=== PATIENT | male | born 1965 | race Caucasian/White ===

== ENCOUNTER 2021-09-21 10:28 | Outpatient (CLI) | payer OTHER, SELFPAY ==
--- NOTE | ~2021-09-21 | US_ITS ---
US abdomen complete DATE: 09/21/2021 11:41 INDICATION: Abdominal aortic aneurysm TECHNIQUE: Real-time imaging of the abdomen. Doppler analysis. COMPARISON: None FINDINGS: The pancreatic tail is partially obscured the pancreas otherwise appears normal. No pancrea tic duct dilatation. No hepatic space-occupying mass lesion is detected. Normal hepatopedal portal venous flow direction. No gallstones or gallbladder wall thickening. Negative sonographic Philippe's sign. The common bile sandy t measures 2.8 mm, normal. The kidneys each measure roughly 10 cm length. No renal mass lesion or hydronephrosis. Approximate 1.2 cm probable exophytic left renal cyst. Normal splenic size. Approximately 3.8 cm fusiform infrarenal abdominal aortic aneurysm. Inferior vena cava appears unrema rkable. IMPRESSION: Approximately 3.8 cm infrarenal fusiform abdominal aortic aneurysm 1.2 cm exophytic left renal cyst Reviewed, dictated and finalized at [facility]. Reviewed, dictated and finalized at location B.
== END 2021-09-21 10:29 | disposition home or self-care (01) ==
PROVIDERS: PCP Family Medicine; Visit Provider Internal Medicine Cardiovascular Disease
DX: I71.4 Abdominal aortic aneurysm, without rupture (principal); N28.1 Cyst of kidney, acquired
CPT/HCPCS: 76700

== ENCOUNTER 2023-02-18 10:23 | Inpatient (IN) | payer OTHER, SELFPAY ==
--- NOTE | ~2023-02-18 | US_ITS ---
. EXAMINATION: US biopsy liver DATE: 02/19/2023 14:54 INDICATION: Liver mass. TECHNIQUE: The procedure including the risks, benefits, and alternatives was discussed with the patie nt. Risks discussed included bleeding and infection. The patient understood the risks and agreed to p roceed. The skin overlying the left hepatic lobe was prepped and draped in usual sterile fashion. An esthetic was administered with 1% lidocaine subcutaneously. An 18 gauge core biopsy needle was then used to obtain 3 core biopsy specimens under continuous sonographic guidance. The entry site was joce jamil and dressed. There were no immediate complications. FINDINGS: Ultrasound images demonstrate the needle in a 3.5 cm hypoechoic mass in left hepatic lobe. IMPRESSION: 1. Ultrasound-guided core needle biopsy of a mass in left hepatic lobe. Reviewed, dictated and finalized at location A. RER PIPELINE
--- NOTE | ~2023-02-18 | CT_ITS ---
EXAMINATION: CTA chest abdomen pelvis DATE: 02/18/2023 12:33 INDICATION: Chest and epigastric abdominal pain. TECHNIQUE: Computed tomographic angiography (CTA) of the chest, abdomen, and pelvis was performed wit h 100 mL Omnipaque-350 intravenous contrast. Automated exposure control and iterative reconstruction technique were employed. The dose-length product was 1191.63 mGy-cm. Maximum intensity projection 3D- reconstructions of the aorta and other arteries were constructed by the technologist on a separate wo rkstation. COMPARISON: None. FINDINGS: CHEST CTA: There is mild atelectasis bilaterally. There are airspace opacities in right upper lobe with volume l oss and areas of parenchymal hypoenhancement. There is a small right pleural effusion. The heart size is normal. There are coronary artery calcifications. No pericardial effusion. Aortic atherosclerosis is noted. No aortic dissection or aneurysm. There is mediastinal and right hilar lymphadenopathy. Th ere are innumerable scattered lytic lesions of bone, consistent with metastatic disease. ABDOMEN AND PELVIS CTA: There are greater than 40 masses in the liver measuring up to 3.2 cm. There is fat stranding around t he tail the pancreas, consistent with acute interstitial pancreatitis. The gallbladder, spleen, and r ight adrenal gland are normal. There is a 4 mm mass of fat in left adrenal gland, consistent with a m yelolipoma. There is cortical thinning of the kidneys. There is a 15 mm cyst in left kidney. There is a 4.0 cm fusiform infrarenal aortic aneurysm. The prostate is mildly enlarged. The appendix is marty l. There are no dilated loops of bowel. There is mild periceliac lymphadenopathy. There is calcified atherosclerosis of the aorta and many of the other arteries. There is no significant stenosis of gretta ac axis, superior mesenteric artery, the renal arteries, or inferior mesenteric artery. There is no f ree intraperitoneal fluid. There are numerable scattered lytic lesions of bone, consistent metastatic disease. IMPRESSION: 1. Liver masses, chest and abdominal lymphadenopathy, and widespread bone lesions, consistent with me tastatic disease. Ultrasound-guided core needle biopsy of a liver mass is recommended. 2. Small right pleural effusion. 3. Airspace opacities with volume loss in right lung upper lobe, which may be atelectasis, pneumonia, and/or malignancy. 4. Acute interstitial pancreatitis. Reviewed, dictated and finalized at location A. TRICAL MACHINIST IMPRESSION: 1. Liver masses, chest and abdominal lymphadenopathy, and widespread bone lesio ns, consistent with metastatic disease. Ultrasound-guided core needle biopsy of a liver mass is recommended. 2. Small right pleural effusion. 3. Airspace opacities with volume loss in right lung upper lobe, which may be a telectasis, pneumonia, and/or malignancy. 4. Acute interstitial pancreatitis.
--- NOTE | ~2023-02-18 | XR_ITS ---
EXAMINATION: XR abdomen obstructive series DATE: 02/24/2023 10:32 INDICATION: Constipation TECHNIQUE: Supine and upright views of the abdomen. FINDINGS: 02/23/2023 The visualized lung parenchyma is normal.. There is a nonobstructive bowel gas pattern. Moderate gas throughout the colon. There are surgical changes consistent with fusion at L4 S1. Gas and stool are s een throughout the colon to the level of the rectum. There is no free air. IMPRESSION: 1. Moderate gas throughout the colon, nonspecific. No obstruction.. Reviewed, dictated and finalized at location A. ING DYER
--- NOTE | ~2023-02-18 | MR_ITS ---
EXAMINATION: MR MRCP wo/w con/w 3D wo ind DATE: 02/22/2023 07:15 INDICATION: Acute pancreatitis. TECHNIQUE: Magnetic resonance imaging (MRI) of the abdomen was performed without and with 17 mL Multi Noah intravenous contrast. Sequences included coronal T2-weighted FS FSE, coronal T2-weighted FSE, a xial T1-weighted LAVA, coronal FS FIESTA, axial dual-echo T1-weighted SPGR, coronal lava-FLEX, sagitt al T2-weighted FSE, axial T2-weighted FSE, and axial DWI. Thick-slab T2-weighted FSE images were obta ined for magnetic resonance cholangiopancreatography (MRCP). Maximum intensity projection 3-D reconst ructions of the volumetric data were created by the technologist. Postcontrast sequences included cor onal LAVA-flex and time course of axial T1-weighted LAVA. COMPARISON: CT abdomen and pelvis 02/18/2023 FINDINGS: ABDOMEN MRI: There are small pleural effusions, right worse than left. The heart size is normal. No p ericardial effusion. There are innumerable masses in the liver measuring up to 3.6 cm, consistent wit h metastatic disease. There is a small hematoma superficial to the left hepatic lobe from the recent liver biopsy. The gallbladder and spleen are normal. There is edema around the pancreas, consistent w ith acute interstitial pancreatitis. There are 2 hypoenhancing masses in the pancreas measuring up to 7 mm, likely metastatic disease. The adrenal glands are normal. There are cysts in the kidneys measu ring up to 1.4 cm on the left. There are no dilated loops of bowel. There is a 3.7 cm fusiform aneury sm of infrarenal aorta. There is trace ascites. There is mild periceliac lymphadenopathy. There are c hanges of posterior fusion procedure from L4 to S1 with pedicle screws. There are widespread bone les ions, consistent metastatic disease. ABDOMEN MRCP: The common duct is normal and measures 5 mm. No choledocholithiasis. IMPRESSION: 1. Mild findings of acute interstitial pancreatitis. 2. Widespread metastatic disease including liver masses, pancreatic masses, abdominal lymphadenopathy , and bone lesions. 3. Small pleural effusions. Reviewed, dictated and finalized at location A. MANAGER IMPRESSION: 1. Mild findings of acute interstitial pancreatitis. 2. Widespread metastatic disease including liver masses, pancreatic masses, abd ominal lymphadenopathy, and bone lesions. 3. Small pleural effusions.
--- NOTE | ~2023-02-18 | XR_ITS ---
XR abdomen/kub 1V 02/23/2023 14:30 Indication: Abdominal distention Procedure: KUB Comparison: No prior studies for comparison. Findings: Nonobstructive bowel gas pattern. There is surgical fusion changes at L4-S1. The right S1 p edicle screw is fractured. No acute osseous abnormality. Impression: 1: No acute abdominal abnormality. Reviewed, dictated and finalized at location A. RITY SUPERVISOR Impression: 1: No acute abdominal abnormality.
[2023-02-18 10:24] VITALS: BP 172/108; PULSE 100; RESP 18; TEMP 36.2; O2SAT 100
[2023-02-18 10:43] LABS: Basophils Percent Auto 0.3 % (0.2-1.2); Eosinophils Absolute Auto 0.1 K/mm3 (0-0.3); Eosinophils Percent Auto 0.6 % (0-4.4); Hematocrit 41.5 % (42.0-52.0); Hemoglobin 13.4 g/dL (14.0-18.0); Immature Granulocyte Absolute 1.09 K/mm3 (0.00-0.031); Immature Platelet Fraction Pct 6.1 % (0.9-11.2); Lymphocytes Percent Auto 25.3 % (18.3-44.2); Mean Corpuscular HGB Conc 32.3 g/dl (32-36); Mean Corpuscular Hemoglobin 29.3 pg (26-34); Mean Corpuscular Volume 90.6 fl (80-100); Mean Platelet Volume 10.2 fl (7.4-10.4); Monocytes Percent Auto 10.1 % (2.6-8.5); Neutrophils Absolute Auto 5.2 K/mm3 (1.3-6.7); Neutrophils Percent Auto 52.7 % (45.5-73.1); Nucleated Red Blood Cells Absolute Auto 0.1 K/mm3 (0.0-0.012); Nucleated Red Blood Cells Perc 0.8 % (0.0-0.2); Platelet Count Result 78 k/mm3 (150-375); Red Blood Count 4.58 M/mm3 (4.6-6.20); Red Cell Distribution Width 13.2 % (11.5-14.5); White Blood Count 9.9 K/mm3 (4.5-10.0)
[2023-02-18 10:58] LABS: Alanine Aminotransferase 107 U/L (6-50); Alkaline Phosphatase 555 U/L (38-126); Anion Gap 11 mmol/L (8-16); Aspartate Amino Transferase 135 U/L (17-59); Bilirubin,Total 0.5 mg/dL (0.2-1.3); Blood Urea Nitrogen 17 mg/dL (9-20); Carbon Dioxide 25 mmol/L (22-30); Chloride 101 mmol/L (98-107); Estimated CRCL calculation 87 ml/min; Estimated Glomerular Filt Rate > 60; Glucose 91 mg/dL (65-110); Lipase 2387 U/L (23-300); Potassium 3.3 mmol/L (3.4-5.0); Sodium 137 mmol/L (137-145)
[2023-02-18 11:19] LABS: Platelet Estimate Adequate (Adequate); Poikilocytosis 1+ (NORMAL)
[2023-02-18 11:20] LABS: Schistocytes None Seen (NORMAL)
--- NOTE | 2023-02-18 11:48 | ED.GENADULT ---
HPI - General Adult General Chief complaint: Abdominal Pain <Abelardo Coronel PA-C - Last Filed: 02/18/23 18:19> Stated complaint: abd pain <Abelardo Coronel PA-C - Last Filed: 02/18/23 18:19> Time Seen by Provider: 02/18/23 11:08 <Abelardo Coronel PA-C - Last Filed: 02/18/23 18:19> Source: patient <LAURIE Hill Last Filed: 02/18/23 18:19> Mode of arrival: ambulatory <LAURIE Hill Last Filed: 02/18/23 18:19> Limitations: no limitations <Abelardo Coronel PA-C - Last Filed: 02/18/23 18:19> History of Present Illness HPI narrative: This is a 57 year old male with PMH of CAD s/p stent placement, chronic low back pain who presents to the ED with chief complaint of upper abdominal pain for the past 2 weeks and worsening today. Reports that it radiates to the back. Reports 8/10 pain. States it is a pressure-like pain. Denies nausea or vomiting. Denies syncope. States he has mid to low back pain as well but is unsure if this is just his chronic low back pain. Denies numbness, weakness, problems with urination. Also states that he has been told he has a abdominal aortic aneurysm. States that initially it was found to be around [address] scan in 2019. He states his last ultrasound check was 2 years ago and reports that it had grown to somewhere in the 4 cm range. He has not had any subsequent scans. <Abelardo Coronel PA-C - Last Filed: 02/18/23 18:19> Related Data Home medications: Home Medications Medication Instructions Recorded Confirmed carvedilol 25 mg tablet 25 mg PO BID 02/18/23 02/18/23 ezetimibe 10 mg tablet 10 mg PO DAILY 02/18/23 02/18/23 lisinopril 20 mg tablet 20 mg PO DAILY 02/18/23 02/18/23 rosuvastatin 40 mg tablet 20 mg PO DAILY 02/18/23 02/18/23 <LAURIE Hill Last Filed: 02/18/23 18:19> Allergies/adverse reactions: Allergies Allergy/AdvReac Type Severity Reaction Status Date / Time No Known Allergies Allergy Mild Verified 02/18/23 12:05 <Abelardo Coronel PA-C - Last Filed: 02/18/23 18:19> Review of Systems Review of Systems: All systems as dictated in HPI <Abelardo Coronel PA-C - Last Filed: 02/18/23 18:19> [facility] Past Medical History Medical History: Medical History (Updated 02/18/23 @ 17:26 by Karen Cortes PA-C) Abdominal aortic aneurysm Per patient report last measuring around 4 cm. Coronary artery disease Dyslipidemia Hypertension Ischemic cardiomyopathy EF was 35 to 40% at time of non STEMI in 06/2010 EF was 50% on cardiac catheterization in 12/2015. Non-ST elevation myocardial infarction (NSTEMI) (06/2010) <Abelardo Coronel PA-C - Last Filed: 02/18/23 18:19> Surgical History Surgical History: Surgical History (Updated 02/18/23 @ 16:53 by Karen Cortes PA-C) History of cardiac catheterization (12/2015) Patent stents, 40 to 50% stenosis of the RCA and mid LAD with an EF of 50%. History of coronary artery stent placement (06/2010) Stents to the mid right coronary artery and proximal PLV. History of spinal fusion <Abelardo Coronel PA-C - Last Filed: 02/18/23 18:19> Family History Family History: Family History Grandparent Hypertension Diabetes mellitus Mother Cerebrovascular accident Heart disease Father Family history of heart disease in male family member before age 55 Heart disease <Abelardo Coronel PA-C - Last Filed: 02/18/23 18:19> Social History Social History: Social History (Updated 02/18/23 @ 22:17 by Karen Cortes PA-C) Social History: Surrogate medical decision maker: Ayesha Grace, spouse. Code status: Full code. Smoking packs per day: 0.5 Smoking cigarettes per day: 10.0 Years smoked: 40 Smoking pack-years: 20.00 Smoking status: Current every day smoker Alcohol intake: never Substance use: never Substance use type: does not use Lack of Transportation: No [place]
--- NOTE | 2023-02-18 11:49 | ECG_ITS ---
Measurements Intervals [place] Rate: 91 P: 29 ND: 162 QRS: 19 QRSD: 110 T: 48 QT: 359 QTc: 444 Interpretive Statements SINUS RHYTHM INCOMPLETE RIGHT BUNDLE BRANCH BLOCK BASELINE ARTIFACT- I, II, III, AVR, AVL, AVF BORDERLINE ECG NO PREVIOUS ECG AVAILABLE FOR COMPARISON Electronically Signed On 02-18-2023 12:08:35 [employer] PRODUCT DEVELOPMENT MANAGER by Jose Herrera D.O.
[2023-02-18] MEDS: SODIUM CHLORIDE 0.9% IV 1,000 ML 999 ML IV CONT (11:50)
[2023-02-18] MEDS: ONDANSETRON INJ 4 MG/2 ML VIAL IV PUSH (11:50)
[2023-02-18] MEDS: MORPHINE SULFATE (*CRX) 4 MG/ML INJ IV PUSH ×2 (11:50→15:26)
[2023-02-18 12:10] LABS: Appearance Urine Cloudy (Clear); Bacteria Urine None Seen /hpf; Bilirubin Urine Negative (Negative); Blood Urine Negative (Negative); Color Urine Yellow (Yellow); Glucose Urine UA Negative (Negative); Ketones Urine Negative (Negative); Leukocyte Esterase Ur Negative LEU/UL (Negative); Nitrate Urine Negative (Negative); Non Pathogenic Casts 0-2; Protein Urine Trace mg/dL (Negative); RBC Urine 0-2 /hpf (0-2); Specific Grav Ur 1.021 (1.001-1.035); Squamous Epithelial Cell Urine None seen /hpf (Few); WBC Urine 0-5 /hpf
[2023-02-18 12:16] LABS: Add Urine Microscopic? YES
[2023-02-18 12:32] LABS: Troponin I < 0.012 ng/mL (0.000-0.034)
[2023-02-18 12:52] VITALS: BP 155/93; PULSE 75; RESP 18; O2SAT 96
[2023-02-18 13:36] LABS: Lactate Dehydrogenase 2063 U/L (120-246)
[2023-02-18] MEDS: SODIUM CHLORIDE 0.9% IV 1,000 ML 125 ML IV CONT (13:52)
[2023-02-18 13:53] LABS: Triglycerides 191 mg/dL (<150)
--- NOTE | 2023-02-18 14:49 | ADMGEN ---
This patient, Jayy Grace, was admitted to [facility] Surg Room 303-01. Patient/family oriented to hospital policies and general routines including ID bracelet, bed and alarms, visiting hours, pain management, procedures, bathroom and other care routines, personal items, smoking policy, room service/diet, and visiting hours. Information on how to activate the Rapid Response Team has been discussed. Patient/Family are encouraged to report perceived risks to care and to ask questions if they do not understand what they are told or what they should do.
--- NOTE | 2023-02-18 14:52 | PC.NURSE ---
being admitted with IVF infusing
[2023-02-18 15:08] VITALS: BP 149/91; PULSE 100; RESP 16; TEMP 37; O2SAT 96
[2023-02-18 15:44] VITALS: O2SAT 96
--- NOTE | 2023-02-18 16:34 | PM.IMHP ---
H&P: HPI History of Present Illness Date/Time: 02/18/23 16:30 Chief Complaint: Abdominal pain. Narrative: This is a pleasant 57-year-old male smoker with coronary artery disease with history of stents, ischemic cardiomyopathy with improved EF, hypertension, dyslipidemia, abdominal aortic aneurysm measuring around 4 cm on imaging 2 years ago, and chronic low back pain who presented to the emergency department via private vehicle from home for evaluation of abdominal pain. The patient provides the following history. He reports a gradual onset of pressure-like discomfort throughout the upper abdomen which radiates into the back on occasion. The pain can be intense and at its worse he rates it 8/10. It is worse with deep inspiration ?it feels like the air pushes down on the diaphragm? and palpation. He feels bloating and has been belching and passing gas although that does not seem to help with his symptoms. He has not noticed any significant alleviating factors. This pain is different than that he experiences with his chronic mid to low back pain. He thinks he is constipated and reports not having a good bowel movement for over 1 week which is very unusual for him. With further questioning he also endorses a poor appetite, 15 lb unintentional weight loss in the last 1 month, chest congestion with nonproductive cough, chills, sweats, subjective fever, right rib pain, and right scapula pain. He denies chest pain, shortness of breath, vomiting, urinary retention, focal weakness, headache, sore throat, sick contacts, and recent travel. In the ED: He was afebrile on arrival. Blood pressures have been a bit elevated in the 140s to 150 systolic. Labs were significant for a WBC count of 9.9, hemoglobin 13.4, platelets 78, potassium 3.3, calcium 11.0, total bilirubin 0.5, AST 135, ALT 107, alkaline phosphatase 555, lactate dehydrogenase 2063, triglyceride 191, lipase 2387, troponin less than 0.012. Urinalysis was pretty benign. CT of the chest, abdomen, and pelvis showed liver masses, chest and abdominal lymphadenopathy, and widespread bone lesions consistent with metastatic disease, small right pleural effusion airspace opacities with volume loss on the right lung upper lobe, and acute interstitial pancreatitis. He is being admitted in this setting for further treatment and evaluation. He denies personal and family history of pancreatitis and malignancy. Denies risk factors for pancreatitis. He has never had a colonoscopy. PSA has never been elevated. He has not noticed any new skin lesions or atypical looking moles. Review of Systems Review of Systems: Twelve systems were reviewed and are negative except for as per HPI. [facility] Past Medical History Medical History (Updated 02/18/23 @ 17:26 by Karen Cortes PA-C) Abdominal aortic aneurysm Per patient report last measuring around 4 cm. Coronary artery disease Dyslipidemia Hypertension Ischemic cardiomyopathy EF was 35 to 40% at time of non STEMI in 06/2010 EF was 50% on cardiac catheterization in 12/2015. Non-ST elevation myocardial infarction (NSTEMI) (06/2010) Surgical History Surgical History (Updated 02/18/23 @ 16:53 by Karen Cortes PA-C) History of cardiac catheterization (12/2015) Patent stents, 40 to 50% stenosis of the RCA and mid LAD with an EF of 50%. History of coronary artery stent placement (06/2010) Stents to the mid right coronary artery and proximal PLV. History of spinal fusion Family History Family History Grandparent Hypertension Diabetes mellitus Mother Cerebrovascular accident Heart disease Father Family history of heart disease in male family member before age 55 Heart disease Social History Social History (Updated 02/18/23 @ 22:17 by Karen Cortes PA-C) Social History: Surrogate medical decision maker: Ayesha Grace, spouse. Code status: Full code. Smoking packs per day: 0.5 Sm
[2023-02-18] MEDS: KCL 20 MEQ/SW 100 ML 100 ML 50 MEQ IVPB (17:34)
[2023-02-18 20:33] VITALS: BP 155/90; PULSE 101; RESP 16; TEMP 36.4; O2SAT 96
[2023-02-18] MEDS: SODIUM CHLORIDE 0.9% IV 1,000 ML 150 ML IV CONT (20:55)
[2023-02-18] MEDS: HYDROcodone/acetaminophen (*CRX) 5-325 MG TABLET 1 TAB PO (20:57)
[2023-02-18] MEDS: AZITHROMYCIN 500 MG/NS 250 ML 500 MG/250 ML BAG 250 MG IVPB (23:55)
[2023-02-19] MEDS: HYDROcodone/acetaminophen (*CRX) 5-325 MG TABLET 1 TAB PO ×2 (02:38→20:43)
[2023-02-19] MEDS: SODIUM CHLORIDE 0.9% IV 1,000 ML 150 ML IV CONT ×3 (04:46→20:46)
[2023-02-19 05:07] VITALS: BP 158/89; PULSE 89; RESP 16; TEMP 36.6; O2SAT 96
[2023-02-19 06:44] LABS: Hematocrit 37.5 % (42.0-52.0); Hemoglobin 12.2 g/dL (14.0-18.0); Immature Platelet Fraction Pct 5.9 % (0.9-11.2); Mean Corpuscular HGB Conc 32.5 g/dl (32-36); Mean Corpuscular Hemoglobin 29.9 pg (26-34); Mean Corpuscular Volume 91.9 fl (80-100); Mean Platelet Volume 10.6 fl (7.4-10.4); Platelet Count Result 68 k/mm3 (150-375); Red Blood Count 4.08 M/mm3 (4.6-6.20); Red Cell Distribution Width 13.3 % (11.5-14.5); White Blood Count 8.7 K/mm3 (4.5-10.0)
[2023-02-19 07:15] LABS: Alanine Aminotransferase 83 U/L (6-50); Albumin Level 3.4 g/dL (3.5-5.1); Alkaline Phosphatase 462 U/L (38-126); Anion Gap 8 mmol/L (8-16); Aspartate Amino Transferase 128 U/L (17-59); Bilirubin,Total 0.6 mg/dL (0.2-1.3); Blood Urea Nitrogen 10 mg/dL (9-20); Carbon Dioxide 27 mmol/L (22-30); Chloride 101 mmol/L (98-107); Estimated CRCL calculation 109 ml/min; Estimated Glomerular Filt Rate > 60; Glucose 80 mg/dL (65-110); Lipase 1557 U/L (23-300); Potassium 3.6 mmol/L (3.4-5.0); Sodium 136 mmol/L (137-145)
[2023-02-19] MEDS: MORPHINE SULFATE (*CRX) 4 MG/ML INJ IV PUSH ×4 (10:03→21:52)
[2023-02-19 10:59] LABS: INR 1.2; Prothrombin Time 15.3 Seconds (11.1-14.7)
[2023-02-19 11:01] VITALS: BMI 30.2
[2023-02-19 11:01] LABS: Partial Thromboplastin Time 37.3 SECONDS (22.3-36.8)
[2023-02-19 14:20] VITALS: BP 163/95; PULSE 100; RESP 18; TEMP 37; O2SAT 99
--- NOTE | 2023-02-19 15:25 | PM.IMPN ---
Progress Note: A&P Assessment and Plan (1) Acute pancreatitis: Code(s): K85.90 - Acute pancreatitis without necrosis or infection, unspecified Status: Acute Assessment and Plan: CT scan showed fat stranding was noted around the tail the pancreas consistent with acute interstitial pancreatitis IVF, advance to clears pain control monitor labs, lipase down from admission to 1557 (2) Liver masses: Code(s): R16.0 - Hepatomegaly, not elsewhere classified Status: Acute Assessment and Plan: CT scan showed multiple findings including greater than 40 masses in the liver measuring up to 3.2 cm, chest and abdominal lymphadenopathy, and widespread bone lesions consistent with metastatic disease. US liver biopsy done today, pathology pending oncology consulted (3) Bone lesion: Code(s): M89.9 - Disorder of bone, unspecified Status: Acute Assessment and Plan: CT scan showed multiple findings including greater than 40 masses in the liver measuring up to 3.2 cm, chest and abdominal lymphadenopathy, and widespread bone lesions consistent with metastatic disease. oncology consulted (4) Elevated LFTs: Code(s): R79.89 - Other specified abnormal findings of blood chemistry Status: Acute Assessment and Plan: LFTs are elevated, likely due to the innumerable liver masses. continue to monitor (5) Thrombocytopenia: Code(s): D69.6 - Thrombocytopenia, unspecified Status: Acute Assessment and Plan: platelet count is 68 which may very well be due to underlying malignancy with bone involvement continue to monitor oncology consulted SCDs ordered only for now (6) Hypertension: Code(s): I10 - Essential (primary) hypertension Status: Chronic Assessment and Plan: resume home meds when taking in PO PRN hydralazine ordered (7) Coronary artery disease: Code(s): I25.10 - Atherosclerotic heart disease of [place] coronary artery without angina pectoris Status: Chronic Assessment and Plan: continue home meds when taking PO (8) Pneumonia: Code(s): J18.9 - Pneumonia, unspecified organism Status: Acute Assessment and Plan: CT scan showed airspace opacities with volume loss was noted in the right upper lobe which may be atelectasis, pneumonia, and or malignancy. will continue Rocephin and azithromycin for coverage Subjective Date/time seen: 02/19/23 15:25 Interval history: Patient is a 57 YO male smoker with PMH of coronary artery disease with history of stents, ischemic cardiomyopathy with improved EF, hypertension, dyslipidemia, abdominal aortic aneurysm measuring around 4 cm on imaging 2 years ago, and chronic low back pain admitted from ER for evaluation of abdominal pain. He reports a gradual onset of pressure-like discomfort throughout the upper abdomen which radiates into the back on occasion. This has been going on for over a week. The pain can be intense and at its worse he rates it 8/10. It is worse with deep inspiration. He feels bloating and has been belching and passing gas although that does not seem to help with his symptoms. He thinks he is constipated and reports not having a good bowel movement for over 1 week which is very unusual for him. With further questioning he also endorses a poor appetite, 15 lb unintentional weight loss in the last 1 month, chest congestion with nonproductive cough, chills, sweats, subjective fever, right rib pain, and right scapula pain. He denies chest pain, shortness of breath, vomiting, urinary retention, focal weakness, headache, sore throat, sick contacts, and recent travel. He is being treated for acute pancreatitis with IVF, pain control. Lipase has improved to 1557 from admission, will continue to monitor. US liver biopsy done today, can advance to clear liquids for dinner and see how he does. Pathology sent and oncology consulted. Will continue R
[2023-02-19] MEDS: hydrALAZINE HCL 20 MG/ML VIAL 10 MG IV PUSH (17:30)
[2023-02-19 17:45] VITALS: BP 160/70
--- NOTE | 2023-02-19 17:59 | PDONCCN ---
[facility] - Date of Consult Date/Time: 02/19/23 17:59 Requesting Physician: Bernardino Gaines MD Primary Care Provider: Aydin Olmstead MD - Consult Narrative Reason for consult: Liver masses Narrative: Jayy Grace is a 57 year old male with history of coronary artery disease, schema cardiomyopathy, hypertension and hyperlipidemia came into the hospital with complain of abdominal pain with radiation to the back along with constipation. He has a history of smoking. He denies any previous history of malignancy.CT of the chest, abdomen, and pelvis showed liver masses, chest and abdominal lymphadenopathy, and widespread bone lesions consistent with metastatic disease, small right pleural effusion airspace opacities with volume loss on the right lung upper lobe, and acute interstitial pancreatitis. Review of Systems - Review of Systems All systems reviewed & are unremarkable except as noted in [facility] and [facility] Medical History: Medical History (Last Updated 02/19/23 @ 15:33 by Angelica Horne APRN) Abdominal aortic aneurysm Per patient report last measuring around 4 cm. Coronary artery disease Dyslipidemia Hypertension Ischemic cardiomyopathy EF was 35 to 40% at time of non STEMI in 06/2010 EF was 50% on cardiac catheterization in 12/2015. Non-ST elevation myocardial infarction (NSTEMI) Onset Date: 06/2010 Surgical History: Surgical History (Last Updated 02/18/23 @ 16:53 by Karen Cortes PA-C) History of cardiac catheterization Onset Date: 12/2015 Patent stents, 40 to 50% stenosis of the RCA and mid LAD with an EF of 50%. History of coronary artery stent placement Onset Date: 06/2010 Stents to the mid right coronary artery and proximal PLV. History of spinal fusion Family History: Family History (Last Reviewed 02/18/23 @ 16:54 by Karen Cortes PA-C) Grandparent Hypertension Diabetes mellitus Mother Cerebrovascular accident Heart disease Father Family history of heart disease in male family member before age 55 Heart disease - Social History Social History: Social History (Last Updated 02/18/23 @ 22:17 by Karen Cortes PA-C) Alcohol Use: Alcohol intake: never Substance Use: Substance use: never Substance use type: does not use Others: Spiritual care concerns: No Smoking Status: Smoking status: Current every day smoker Smoking Pack-years: Smoking packs per day: 0.5 Smoking cigarettes per day: 10.0 Years smoked: 40 Smoking pack-years: 20.00 Social Determinants of Health: Has the Lack of Transportation Kept You From Medical Appointments or From Getting Medications?: No Within the Past 12 Months, Were You Worried Whether Your Food Would Run Out Before You Got Money to Buy More?: Never True What is Your Housing Situation Today?: Decline to Answer Are You Worried That in the Next 2 Months, You May Not Have Your Own Housing to Live In?: No Do You Have Trouble Paying Your Heating Or Electricity Bill?: No Do You Have Trouble Paying For Medicines?: No Are You Currently Unemployed and Looking for Work?: No Highest Level of Education Completed: Associate Degree Do You Have Trouble With Childcare or the Care of a Family Member?: No Exam - Vital Signs Vital Signs - 24 hr 02/18/23 20:33 02/18/23 20:00 02/19/23 05:07 Temperature 36.4 C 36.6 C Pulse Rate 101 H 89 Respiratory Rate 16 16 Blood Pressure 155/90 H 158/89 H Pulse Oximetry 96 96 Oxygen Delivery Room Air 02/19/23 08:00 02/19/23 14:20 Temperature 37.0 C Pulse Rate 100 Respiratory Rate 18 Blood Pressure 163/95 H Pulse Oximetry 99 Oxygen Delivery Room Air - Exam HEENT: EOMI, PERRLA, mucous membranes moist and pink Neck: supple Lungs: clear to auscultation, normal air movement Heart: no murmurs, gallops, or rubs, regular rhythm, regular rate Abdomen: abdomen soft, non-distended, tender Extrem
[2023-02-19 20:00] VITALS: PULSE 98; RESP 16; O2SAT 96
[2023-02-19 20:34] VITALS: BP 182/110; PULSE 98; RESP 16; TEMP 36.1; O2SAT 96
[2023-02-19] MEDS: AZITHROMYCIN 500 MG/NS 250 ML 500 MG/250 ML BAG 250 MG IVPB (20:46)
[2023-02-19 22:09] VITALS: BP 148/97
[2023-02-20] VITALS (8 sets, daily range): BP systolic 155–169; BP diastolic 90–99; PULSE 83–97; RESP 16–17; TEMP 35.9–36.6; O2SAT 93–97
[2023-02-20] MEDS: MORPHINE SULFATE (*CRX) 4 MG/ML INJ IV PUSH ×4 (01:41→20:28)
[2023-02-20] MEDS: HYDROcodone/acetaminophen (*CRX) 5-325 MG TABLET 1 TAB PO ×2 (04:50→11:51)
[2023-02-20] MEDS: SODIUM CHLORIDE 0.9% IV 1,000 ML 150 ML IV CONT ×3 (04:51→18:27)
[2023-02-20 06:16] LABS: Basophils Absolute Auto 0.1 K/mm3 (0.0-0.1); Basophils Percent Auto 0.6 % (0.2-1.2); Eosinophils Percent Auto 0.5 % (0-4.4); Hematocrit 36.7 % (42.0-52.0); Hemoglobin 12.2 g/dL (14.0-18.0); Immature Granulocyte Absolute 1.17 K/mm3 (0.00-0.031); Immature Granulocyte Percent A 13.3 % (0-0.5); Immature Platelet Fraction Pct 6.2 % (0.9-11.2); Lymphocytes Absolute Auto 1.88 K/mm3 (0.9-3.2); Lymphocytes Percent Auto 21.4 % (18.3-44.2); Mean Corpuscular HGB Conc 33.2 g/dl (32-36); Mean Corpuscular Hemoglobin 29.7 pg (26-34); Mean Corpuscular Volume 89.3 fl (80-100); Mean Platelet Volume 10.4 fl (7.4-10.4); Monocytes Absolute Auto 1.1 K/mm3 (0.1-0.6); Monocytes Percent Auto 11.9 % (2.6-8.5); Neutrophils Absolute Auto 4.6 K/mm3 (1.3-6.7); Neutrophils Percent Auto 52.3 % (45.5-73.1); Nucleated Red Blood Cells Absolute Auto 0.1 K/mm3 (0.0-0.012); Nucleated Red Blood Cells Perc 0.6 % (0.0-0.2); Platelet Count Result 62 k/mm3 (150-375); Red Blood Count 4.11 M/mm3 (4.6-6.20); Red Cell Distribution Width 13.2 % (11.5-14.5); White Blood Count 8.8 K/mm3 (4.5-10.0)
[2023-02-20 06:26] LABS: Alanine Aminotransferase 73 U/L (6-50); Albumin Level 3.4 g/dL (3.5-5.1); Alkaline Phosphatase 446 U/L (38-126); Anion Gap 8 mmol/L (8-16); Aspartate Amino Transferase 132 U/L (17-59); Bilirubin,Total 0.7 mg/dL (0.2-1.3); Blood Urea Nitrogen 10 mg/dL (9-20); Calcium 10.2 mg/dL (8.4-10.2); Carbon Dioxide 27 mmol/L (22-30); Chloride 100 mmol/L (98-107); Estimated CRCL calculation 110 ml/min; Estimated Glomerular Filt Rate > 60; Glucose 87 mg/dL (65-110); Lipase 1182 U/L (23-300); Potassium 3.4 mmol/L (3.4-5.0); Sodium 135 mmol/L (137-145)
--- NOTE | 2023-02-20 08:33 | P.PNIM_ITS ---
Progress Note: A&P Assessment and Plan (1) Acute pancreatitis: Code(s): K85.90 - Acute pancreatitis without necrosis or infection, unspecified Status: Acute Assessment and Plan: * CT scan showed fat stranding was noted around the tail the pancreas consistent with acute interstitial pancreatitis * IVF @ 150 ml per hour * Clear liquid diet * pain control with PRN norco * monitor labs, lipase down from admission to 1557 02/20:Lipase today is 1182. S/p liver biopsy with IR. Still having pain and appears uncomfortable. Increased [place] 5-10 mg prn q4 hours with 4 mg of morphine for breakthrough pain. Continue with IVF. NPO expect sips with meds. (2) Liver masses: Code(s): R16.0 - Hepatomegaly, not elsewhere classified Status: Acute Assessment and Plan: * CT scan showed multiple findings including greater than 40 masses in the liver measuring up to 3.2 cm, chest and abdominal lymphadenopathy, and widespread bone lesions consistent with metastatic disease. * US liver biopsy done today, pathology pending * oncology consulted 02/20: Oncology is suspecting primary source of cancer from Pancrease vs lung. Awaiting biopsy results. I made him aware that he does not need to remain inpatient until biopsy results. (3) Bone lesion: Code(s): M89.9 - Disorder of bone, unspecified Status: Acute Assessment and Plan: * CT scan showed multiple findings including greater than 40 masses in the liver measuring up to 3.2 cm, chest and abdominal lymphadenopathy, and widespread bone lesions consistent with metastatic disease. * oncology consulted 02/20: No musculoskeletal complaints at this time. (4) Elevated LFTs: Code(s): R79.89 - Other specified abnormal findings of blood chemistry Status: Acute Assessment and Plan: * LFTs are elevated, likely due to the innumerable liver masses. * continue to monitor 02/20: Slowly downtrending. Monitor with daily labs. (5) Thrombocytopenia: Code(s): D69.6 - Thrombocytopenia, unspecified Status: Acute Assessment and Plan: * platelet count is 68 which may very well be due to underlying malignancy with bone involvement * continue to monitor * oncology consulted * SCDs ordered only for now 02/20: Down to 62 this am. No acute S/S of bleeding. (6) Hypertension: Code(s): I10 - Essential (primary) hypertension Status: Chronic Assessment and Plan: * resume home meds when taking in PO * PRN hydralazine ordered 02/20: SBP 160-180's. Restarting home agents. (7) Coronary artery disease: Code(s): I25.10 - Atherosclerotic heart disease of [place] coronary artery without angina pectoris Status: Chronic Assessment and Plan: * continue home meds when taking PO 02/20: Still holding zetia and crestor given LFT elevation ---------
--- NOTE | 2023-02-20 08:33 | PM.IMPN ---
Progress Note: A&P Assessment and Plan (1) Acute pancreatitis: Code(s): K85.90 - Acute pancreatitis without necrosis or infection, unspecified Status: Acute Assessment and Plan: CT scan showed fat stranding was noted around the tail the pancreas consistent with acute interstitial pancreatitis IVF @ 150 ml per hour Clear liquid diet pain control with PRN norco monitor labs, lipase down from admission to 1557 02/20:Lipase today is 1182. S/p liver biopsy with IR. Still having pain and appears uncomfortable. Increased [place] 5-10 mg prn q4 hours with 4 mg of morphine for breakthrough pain. Continue with IVF. NPO expect sips with meds. (2) Liver masses: Code(s): R16.0 - Hepatomegaly, not elsewhere classified Status: Acute Assessment and Plan: CT scan showed multiple findings including greater than 40 masses in the liver measuring up to 3.2 cm, chest and abdominal lymphadenopathy, and widespread bone lesions consistent with metastatic disease. US liver biopsy done today, pathology pending oncology consulted 02/20: Oncology is suspecting primary source of cancer from Pancrease vs lung. Awaiting biopsy results. I made him aware that he does not need to remain inpatient until biopsy results. (3) Bone lesion: Code(s): M89.9 - Disorder of bone, unspecified Status: Acute Assessment and Plan: CT scan showed multiple findings including greater than 40 masses in the liver measuring up to 3.2 cm, chest and abdominal lymphadenopathy, and widespread bone lesions consistent with metastatic disease. oncology consulted 02/20: No musculoskeletal complaints at this time. (4) Elevated LFTs: Code(s): R79.89 - Other specified abnormal findings of blood chemistry Status: Acute Assessment and Plan: LFTs are elevated, likely due to the innumerable liver masses. continue to monitor 02/20: Slowly downtrending. Monitor with daily labs. (5) Thrombocytopenia: Code(s): D69.6 - Thrombocytopenia, unspecified Status: Acute Assessment and Plan: platelet count is 68 which may very well be due to underlying malignancy with bone involvement continue to monitor oncology consulted SCDs ordered only for now 02/20: Down to 62 this am. No acute S/S of bleeding. (6) Hypertension: Code(s): I10 - Essential (primary) hypertension Status: Chronic Assessment and Plan: resume home meds when taking in PO PRN hydralazine ordered 02/20: SBP 160-180's. Restarting home agents. (7) Coronary artery disease: Code(s): I25.10 - Atherosclerotic heart disease of [place] coronary artery without angina pectoris Status: Chronic Assessment and Plan: continue home meds when taking PO 02/20: Still holding zetia and crestor given LFT elevation (8) Pneumonia: Code(s): J18.9 - Pneumonia, unspecified organism Status: Acute Assessment and Plan: CT scan showed airspace opacities with volume loss was noted in the right upper lobe which may be atelectasis, pneumonia, and or malignancy. will continue Rocephin and azithromycin for coverage Incentive spirometer and PEP therapy ordered. 02/20: Remains on room air but is subjectively short of breath. Add pulmonary toileting and mucinex. Lung sounds are diminished with an ever slight wheeze to right upper and middle lobes. PRN albuterol for SOB. Plan Feeding:NPO Analgesia:tylenol and norco prn Thromboembolic prophylaxis: scd's given thrombocytopenia Ulcer prophylaxis: n/a at this time Glycemic control: n/a Bowel regimen: senna and prn miralax Lines: PIV Antibiotics: rocehpin and azithromycin Disposition: Home when medically ready Subjective Date/time seen: 02/20/23 08:33 Interval history: HPI obtained from the chart, Patient is a 57 YO male smoker wit
[2023-02-20] MEDS: lisinopriL 20 MG TABLET PO (09:22)
[2023-02-20] MEDS: EZETIMIBE 10 MG TABLET PO (09:22)
[2023-02-20] MEDS: carvediloL 25 MG TABLET PO ×2 (09:23→20:28)
[2023-02-20] MEDS: guaiFENesin 12 HR 600 MG TABCR 1200 MG PO ×2 (11:51→20:28)
[2023-02-20] MEDS: HYDROcodone/acetaminophen (*CRX) 10-325 MG TABLET 1 TAB PO (17:41)
--- NOTE | 2023-02-20 19:29 | PC.NURSE ---
On 02/20/23, the PLASTIC TUBING INSULATION SUPERVISOR, Jescia Smith, provided care and completed isocket documentation on this patient. I have reviewed the PLASTIC TUBING INSULATION SUPERVISOR's documentation and agree with the findings.
[2023-02-20] MEDS: SENNA/DOCUSATE SODIUM TABLET 1 TAB PO (20:28)
[2023-02-20] MEDS: AZITHROMYCIN 500 MG/NS 250 ML 500 MG/250 ML BAG 250 MG IVPB (20:28)
[2023-02-21] MEDS: HYDROcodone/acetaminophen (*CRX) 10-325 MG TABLET 1 TAB PO ×5 (00:59→19:57)
[2023-02-21 05:15] VITALS: BP 175/107; PULSE 86; RESP 16; TEMP 36.3; O2SAT 95
[2023-02-21 06:34] LABS: Hematocrit 35.8 % (42.0-52.0); Immature Platelet Fraction Pct 6.9 % (0.9-11.2); Mean Corpuscular HGB Conc 33.5 g/dl (32-36); Mean Corpuscular Hemoglobin 29.9 pg (26-34); Mean Corpuscular Volume 89.3 fl (80-100); Mean Platelet Volume 11.3 fl (7.4-10.4); Platelet Count Result 57 k/mm3 (150-375); Red Blood Count 4.01 M/mm3 (4.6-6.20); White Blood Count 8.2 K/mm3 (4.5-10.0)
[2023-02-21 06:48] LABS: Alanine Aminotransferase 71 U/L (6-50); Albumin Level 3.3 g/dL (3.5-5.1); Alkaline Phosphatase 475 U/L (38-126); Anion Gap 9 mmol/L (8-16); Aspartate Amino Transferase 129 U/L (17-59); Bilirubin,Total 0.7 mg/dL (0.2-1.3); Blood Urea Nitrogen 12 mg/dL (9-20); Calcium 10.6 mg/dL (8.4-10.2); Carbon Dioxide 27 mmol/L (22-30); Chloride 102 mmol/L (98-107); Estimated CRCL calculation 96 ml/min; Estimated Glomerular Filt Rate > 60; Glucose 89 mg/dL (65-110); Lipase 1327 U/L (23-300); Potassium 3.3 mmol/L (3.4-5.0); Sodium 138 mmol/L (137-145)
--- NOTE | 2023-02-21 08:20 | P.PNIM_ITS ---
Progress Note: A&P Assessment and Plan (1) Acute pancreatitis: Code(s): K85.90 - Acute pancreatitis without necrosis or infection, unspecified Status: Acute Assessment and Plan: * CT scan showed fat stranding was noted around the tail the pancreas consistent with acute interstitial pancreatitis * IVF @ 150 ml per hour * Clear liquid diet * pain control with PRN norco * monitor labs, lipase down from admission to 1557 02/20:Lipase today is 1182. S/p liver biopsy with IR. Still having pain and appears uncomfortable. Increased [place] 5-10 mg prn q4 hours with 4 mg of morphine for breakthrough pain. Continue with IVF. NPO expect sips with meds. 02/21: States that this current regimen of pain medication is helping with his pain however, he does not feel that the pain is getting any better. He feels similar to when he first came in. Lipase is also slightly elevated from yesterday. Will order MRCP today. May need GI input. (2) Liver masses: Code(s): R16.0 - Hepatomegaly, not elsewhere classified Status: Acute Assessment and Plan: * CT scan showed multiple findings including greater than 40 masses in the liver measuring up to 3.2 cm, chest and abdominal lymphadenopathy, and widespread bone lesions consistent with metastatic disease. * US liver biopsy done today, pathology pending * oncology consulted 02/20: Oncology is suspecting primary source of cancer from Pancrease vs lung. Awaiting biopsy results. I made him aware that he does not need to remain inpatient until biopsy results. (3) Bone lesion: Code(s): M89.9 - Disorder of bone, unspecified Status: Acute Assessment and Plan: * CT scan showed multiple findings including greater than 40 masses in the liver measuring up to 3.2 cm, chest and abdominal lymphadenopathy, and widespread bone lesions consistent with metastatic disease. * oncology consulted * 02/20: No musculoskeletal complaints at this time. 02/21: Chronic back pain. [employer] is helping with this. Can add Lidoderm patch as needed. (4) Elevated LFTs: Code(s): R79.89 - Other specified abnormal findings of blood chemistry Status: Acute Assessment and Plan: * LFTs are elevated, likely due to the innumerable liver masses. * continue to monitor * 02/20: Slowly downtrending. Monitor with daily labs. 02/21: Essentially remains the same today. S/p liver biopsy. No s/s of bleeding. (5) Thrombocytopenia: Code(s): D69.6 - Thrombocytopenia, unspecified Status: Acute Assessment and Plan: * platelet count is 68 which may very well be due to underlying malignancy with bone involvement * continue to monitor * oncology consulted * SCDs ordered only for now 02/20: Down to 62 this am. No acute S/S of bleeding. 02/21: 57 today. Not on anticoagulation. No active bleeding. (6) Hypertension: Code(s): I10 - Essential (primary) hypertension Status: Chronic Assessment and Plan: * resume home meds when taking in PO * PRN hydral
--- NOTE | 2023-02-21 08:20 | PM.IMPN ---
Progress Note: A&P Assessment and Plan (1) Acute pancreatitis: Code(s): K85.90 - Acute pancreatitis without necrosis or infection, unspecified Status: Acute Assessment and Plan: CT scan showed fat stranding was noted around the tail the pancreas consistent with acute interstitial pancreatitis IVF @ 150 ml per hour Clear liquid diet pain control with PRN norco monitor labs, lipase down from admission to 1557 02/20:Lipase today is 1182. S/p liver biopsy with IR. Still having pain and appears uncomfortable. Increased [place] 5-10 mg prn q4 hours with 4 mg of morphine for breakthrough pain. Continue with IVF. NPO expect sips with meds. 02/21: States that this current regimen of pain medication is helping with his pain however, he does not feel that the pain is getting any better. He feels similar to when he first came in. Lipase is also slightly elevated from yesterday. Will order MRCP today. May need GI input. (2) Liver masses: Code(s): R16.0 - Hepatomegaly, not elsewhere classified Status: Acute Assessment and Plan: CT scan showed multiple findings including greater than 40 masses in the liver measuring up to 3.2 cm, chest and abdominal lymphadenopathy, and widespread bone lesions consistent with metastatic disease. US liver biopsy done today, pathology pending oncology consulted 02/20: Oncology is suspecting primary source of cancer from Pancrease vs lung. Awaiting biopsy results. I made him aware that he does not need to remain inpatient until biopsy results. (3) Bone lesion: Code(s): M89.9 - Disorder of bone, unspecified Status: Acute Assessment and Plan: CT scan showed multiple findings including greater than 40 masses in the liver measuring up to 3.2 cm, chest and abdominal lymphadenopathy, and widespread bone lesions consistent with metastatic disease. oncology consulted 02/20: No musculoskeletal complaints at this time. 02/21: Chronic back pain. [place] is helping with this. Can add Lidoderm patch as needed. (4) Elevated LFTs: Code(s): R79.89 - Other specified abnormal findings of blood chemistry Status: Acute Assessment and Plan: LFTs are elevated, likely due to the innumerable liver masses. continue to monitor 02/20: Slowly downtrending. Monitor with daily labs. 02/21: Essentially remains the same today. S/p liver biopsy. No s/s of bleeding. (5) Thrombocytopenia: Code(s): D69.6 - Thrombocytopenia, unspecified Status: Acute Assessment and Plan: platelet count is 68 which may very well be due to underlying malignancy with bone involvement continue to monitor oncology consulted SCDs ordered only for now 02/20: Down to 62 this am. No acute S/S of bleeding. 02/21: 57 today. Not on anticoagulation. No active bleeding. (6) Hypertension: Code(s): I10 - Essential (primary) hypertension Status: Chronic Assessment and Plan: resume home meds when taking in PO PRN hydralazine ordered 02/20: SBP 160-180's. Restarting home agents. 02/21: Elevated. Likely secondary to IVF. Decreasing IVF to 120 ml per hour. (7) Coronary artery disease: Code(s): I25.10 - Atherosclerotic heart disease of [place] coronary artery without angina pectoris Status: Chronic Assessment and Plan: continue home meds when taking PO 02/20: Still holding zetia and crestor given LFT elevation (8) Pneumonia: Code(s): J18.9 - Pneumonia, unspecified organism Status: Acute Assessment and Plan: CT scan showed airspace opacities with volume loss was noted in the right upper lobe which may be atelectasis, pneumonia, and or malignancy. will continue Rocephin and azithromycin for coverage Incentive spirometer and PEP therapy ordered. 02/20: Remains on room air but is subjectively short of b
[2023-02-21] MEDS: POTASSIUM CHLORIDE 20 MEQ ER TABLET 40 MEQ PO (08:57)
[2023-02-21] MEDS: EZETIMIBE 10 MG TABLET PO (08:57)
[2023-02-21] MEDS: lisinopriL 20 MG TABLET PO (08:58)
[2023-02-21] MEDS: guaiFENesin 12 HR 600 MG TABCR 1200 MG PO ×2 (08:58→19:57)
[2023-02-21 09:00] VITALS: PULSE 80
[2023-02-21] MEDS: carvediloL 25 MG TABLET PO ×2 (09:00→19:57)
[2023-02-21 09:06] LABS: Band Neutrophils Percent 21 % (0-6); Basophils Absolute Manual 0.08 K/mm3 (0.0-0.1); Basophils Percent Manual 1 % (0-1); Eosinophils Absolute Manual 0.32 K/mm3 (0.02-0.5); Eosinophils Percent Manual 4 % (0-4); Lymphocytes Absolute Manual 0.65 K/mm3 (1.1-4.5); Metamyelocytes Percent 5 %; Monocytes Absolute Manual 0.73 K/mm3 (0.1-0.90); Monocytes Percent Manual 9 % (3-9); Myelocytes Percent 2 %; Neutrophils Absolute Manual 5.82 K/mm3 (1.3-6.7); Neutrophils Percent Manual 50 % (46-73); Platelet Estimate Decreased (Adequate); Schistocytes None Seen (NORMAL); Total Cells Counted 100
[2023-02-21] MEDS: SODIUM CHLORIDE 0.9% IV 1,000 ML 150 ML IV CONT (10:18)
--- NOTE | 2023-02-21 10:38 | PCNFU ---
Nutrition Follow-Up Complete: Inadequate energy intake related to diet order as evidenced by NPO and clear liquid status. Goal:Meet estimated needs via po diet PO intake 75% of meals Pt not meeting goal. Pt current nutrition is Clear liquids. Nutrition recommendation: continue with current plan of care Last recorded weight is 89.2 kg. Bowel Motility: +02/21 Labs Reviewed: Hgb:12, HCT:35.8, Alb:3.3, K:3.3 Meds Noted: zofran miralax, colace Skin: WNL Additional Notes: Pt continues on clear liquids, intake remains poor due to discomfort. Encourage Ensure clear first on trays. Monitor diet order, intake, tolerance, wt, labs. Follow up again in 3 days.
[2023-02-21] MEDS: MORPHINE SULFATE (*CRX) 4 MG/ML INJ IV PUSH (12:59)
[2023-02-21 14:00] VITALS: BP 153/93; PULSE 84; RESP 16; TEMP 36.6; O2SAT 98
[2023-02-21 14:13] LABS: Amylase 296 U/L (30-110)
[2023-02-21] MEDS: LIDOCAINE 5% PATCH 2 PATCH TRANSDERM (14:36)
[2023-02-21] MEDS: SODIUM CHLORIDE 0.9% IV 1,000 ML 120 ML IV CONT (17:30)
[2023-02-21] MEDS: HYDROmorphone HCL INJ (*CRX) 1 MG/ML SYR 0.5 MG IV PUSH ×2 (18:42→23:06)
--- NOTE | 2023-02-21 19:38 | PC.NURSE ---
Jesica Smith provided care for this patient on 02/21/23. I have reviewed her assessments and agree with her charting
[2023-02-21 19:57] VITALS: PULSE 76
[2023-02-21] MEDS: AMOXICILLIN/CLAVULANATE K 875-125 MG TAB 1 TABLET PO (19:57)
[2023-02-21] MEDS: SENNA/DOCUSATE SODIUM TABLET 1 TAB PO (19:57)
[2023-02-21 20:05] VITALS: O2SAT 95
[2023-02-21 22:00] VITALS: BP 152/89; PULSE 80; RESP 16; TEMP 36.6; O2SAT 95
[2023-02-22] MEDS: HYDROcodone/acetaminophen (*CRX) 10-325 MG TABLET 1 TAB PO ×2 (02:34→08:40)
[2023-02-22] MEDS: SODIUM CHLORIDE 0.9% IV 1,000 ML 120 ML IV CONT (03:20)
[2023-02-22] MEDS: HYDROmorphone HCL INJ (*CRX) 1 MG/ML SYR 0.5 MG IV PUSH (05:15)
[2023-02-22 05:53] LABS: CA 19-9 24 U/mL (<34)
[2023-02-22 06:00] VITALS: BP 158/95; PULSE 84; RESP 16; TEMP 36.6; O2SAT 98
[2023-02-22 06:57] LABS: Hematocrit 33.6 % (42.0-52.0); Immature Platelet Fraction Pct 6.8 % (0.9-11.2); Mean Corpuscular HGB Conc 32.7 g/dl (32-36); Mean Corpuscular Hemoglobin 29.9 pg (26-34); Mean Corpuscular Volume 91.3 fl (80-100); Platelet Count Result 50 k/mm3 (150-375); Red Blood Count 3.68 M/mm3 (4.6-6.20); Red Cell Distribution Width 13.1 % (11.5-14.5); White Blood Count 7.4 K/mm3 (4.5-10.0)
[2023-02-22 07:14] LABS: Alanine Aminotransferase 67 U/L (6-50); Albumin Level 3.1 g/dL (3.5-5.1); Alkaline Phosphatase 482 U/L (38-126); Anion Gap 7 mmol/L (8-16); Aspartate Amino Transferase 121 U/L (17-59); Bilirubin,Total 0.7 mg/dL (0.2-1.3); Blood Urea Nitrogen 10 mg/dL (9-20); Calcium 10.1 mg/dL (8.4-10.2); Carbon Dioxide 26 mmol/L (22-30); Chloride 102 mmol/L (98-107); Estimated CRCL calculation 109 ml/min; Estimated Glomerular Filt Rate > 60; Glucose 84 mg/dL (65-110); Lipase 1387 U/L (23-300); Potassium 3.1 mmol/L (3.4-5.0); Sodium 135 mmol/L (137-145)
--- NOTE | 2023-02-22 07:53 | PM.IMPN ---
Progress Note: A&P Assessment and Plan (1) Acute pancreatitis: Code(s): K85.90 - Acute pancreatitis without necrosis or infection, unspecified Status: Acute Assessment and Plan: CT scan showed fat stranding was noted around the tail the pancreas consistent with acute interstitial pancreatitis IVF @ 150 ml per hour Clear liquid diet pain control with PRN norco monitor labs, lipase down from admission to 1557 02/20:Lipase today is 1182. S/p liver biopsy with IR. Still having pain and appears uncomfortable. Increased [place] 5-10 mg prn q4 hours with 4 mg of morphine for breakthrough pain. Continue with IVF. NPO expect sips with meds. 02/21: States that this current regimen of pain medication is helping with his pain however, he does not feel that the pain is getting any better. He feels similar to when he first came in. Lipase is also slightly elevated from yesterday. Will order MRCP today. May need GI input. 02/22: Pain is still uncontrolled. Lipase remains elevated. MRCP was negative for obstructive cause of pain. Does show lesions in the pancrease. Changing his PO meds from norco to oxy with increased Dilaudid for breakthrough. He has not had any food in 5 + days. Will start with PPN today. (2) Liver masses: Code(s): R16.0 - Hepatomegaly, not elsewhere classified Status: Acute Assessment and Plan: CT scan showed multiple findings including greater than 40 masses in the liver measuring up to 3.2 cm, chest and abdominal lymphadenopathy, and widespread bone lesions consistent with metastatic disease. US liver biopsy done today, pathology pending oncology consulted 02/20: Oncology is suspecting primary source of cancer from Pancrease vs lung. Awaiting biopsy results. I made him aware that he does not need to remain inpatient until biopsy results. 02/22: Liver biopsy shows primary small cell carcinoma of the lung and imaging has confirmed mets to bone, liver, Pancrease, and abdominal lymphadenopathy. Will need oncology follow up at outpatient for developing plan of care. Asking Dr Talavera to call and speak with the family today as they have questions. (3) Bone lesion: Code(s): M89.9 - Disorder of bone, unspecified Status: Acute Assessment and Plan: CT scan showed multiple findings including greater than 40 masses in the liver measuring up to 3.2 cm, chest and abdominal lymphadenopathy, and widespread bone lesions consistent with metastatic disease. oncology consulted 02/20: No musculoskeletal complaints at this time. 02/21: Chronic back pain. Perdido is helping with this. Can add Lidoderm patch as needed. 02/22: He says the lidoderm patch is helping some. Will continue with this and change up his oral pain regimen. Add flexeril prn as well. (4) Elevated LFTs: Code(s): R79.89 - Other specified abnormal findings of blood chemistry Status: Acute Assessment and Plan: LFTs are elevated, likely due to the innumerable liver masses. continue to monitor 02/20: Slowly downtrending. Monitor with daily labs. 02/21: Essentially remains the same today. S/p liver biopsy. No s/s of bleeding. 02/22: Not much difference in labs. Stable. (5) Thrombocytopenia: Code(s): D69.6 - Thrombocytopenia, unspecified Status: Acute Assessment and Plan: platelet count is 68 which may very well be due to underlying malignancy with bone involvement continue to monitor oncology consulted SCDs ordered only for now 02/20: Down to 62 this am. No acute S/S of bleeding. 02/21: 57 today. Not on anticoagulation. No active bleeding. 02/22: Plt 50 today. No bleeding. Will transfuse if less than 50 tomorrow. (6) Hypertension: Code(s): I10 - Essential (primary) hypertension Status: Chronic Assessment and Plan: resume home meds when taking in PO PRN hydralazine ordered 02/20: SBP
[2023-02-22] MEDS: DEXTROSE 5%/0.9% SOD CHL 1,000 ML 120 ML IV CONT (08:34)
[2023-02-22] MEDS: POTASSIUM CHLORIDE INJ 40 MEQ in SODIUM CHLORIDE 0.9% IV 500 ML 130 MEQ IVPB (08:34)
[2023-02-22 08:39] VITALS: PULSE 91
[2023-02-22] MEDS: carvediloL 25 MG TABLET PO ×2 (08:39→19:55)
[2023-02-22] MEDS: LIDOCAINE 5% PATCH 2 PATCH TRANSDERM (08:40)
[2023-02-22] MEDS: guaiFENesin 12 HR 600 MG TABCR 1200 MG PO ×2 (08:40→19:54)
[2023-02-22] MEDS: lisinopriL 20 MG TABLET PO (08:40)
[2023-02-22] MEDS: EZETIMIBE 10 MG TABLET PO (08:40)
[2023-02-22] MEDS: polyethylene glycoL 3350 17 GM POWD.PACK PO (08:40)
[2023-02-22] MEDS: AMOXICILLIN/CLAVULANATE K 875-125 MG TAB 1 TABLET PO ×2 (08:40→19:55)
[2023-02-22 08:56] LABS: Band Neutrophils Percent 16 % (0-6); Basophils Absolute Manual 0.14 K/mm3 (0.0-0.1); Basophils Percent Manual 2 % (0-1); Eosinophils Absolute Manual 0.22 K/mm3 (0.02-0.5); Eosinophils Percent Manual 3 % (0-4); Lymphocytes Absolute Manual 0.81 K/mm3 (1.1-4.5); Monocytes Absolute Manual 0.44 K/mm3 (0.1-0.90); Monocytes Percent Manual 6 % (3-9); Neutrophils Absolute Manual 5.77 K/mm3 (1.3-6.7); Neutrophils Percent Manual 62 % (46-73); Total Cells Counted 100
[2023-02-22 08:57] LABS: Anisocytosis 2+ (NORMAL); Atypical Lymphocytes Present; Hypochromasia 1+ (NORMAL); Platelet Estimate Decreased (Adequate); Schistocytes None Seen (NORMAL)
[2023-02-22] MEDS: oxyCODONE HCL (*CRX) 5 MG TAB IR 10 MG PO ×3 (11:01→19:54)
[2023-02-22] MEDS: HYDROmorphone HCL INJ (*CRX) 1 MG/ML SYR IV PUSH ×2 (11:01→18:14)
--- NOTE | 2023-02-22 11:37 | PCNFU ---
Nutrition Follow-Up Complete: Inadequate energy intake related to diet order as evidenced by NPO and clear liquid status. Meet estimated needs via po diet - Not meeting goal PO intake 75% of meals - Not meeting goal Goal: Pt current nutrition is Clear liquids. Nutrition recommendation: Start PPN Clinmix E 4.25/5 + lipids at 80 ml/h: 1153 kcal, (~60% EER), 82 g protein, 2170 ml total volume. To reduce IVFs accordingly. Last recorded weight is 89.7 kg. Bowel Motility: Last recorded BM 02/21/23 Labs Reviewed: Hgb 11.0, Hct 33.6, Alb 3.1, Na 135, K+ 3.1 Meds Noted: Skin: Additional Notes: Not able to increase his PO intake because of pain from pancreatitis. No substantial intake ~5 days. Recommend starting PPN and re-evaluate need for central line in 3 days. Discussed with provider. Monitor diet order, intake, tolerance, wt, labs. Follow up in 3 days.
[2023-02-22] MEDS: AMINO ACIDS 4.25%/D5W/LYTES/CA 2,000 ML 80 ML IV CONT (13:54)
[2023-02-22 14:00] VITALS: BP 172/96; PULSE 85; RESP 16; TEMP 36.2; O2SAT 99
[2023-02-22 14:30] LABS: Basophils Absolute Auto 0.1 K/mm3 (0.0-0.1); Basophils Percent Auto 0.9 % (0.2-1.2); Eosinophils Percent Auto 0.6 % (0-4.4); Hematocrit 33.9 % (42.0-52.0); Hemoglobin 11.2 g/dL (14.0-18.0); Immature Granulocyte Absolute 0.75 K/mm3 (0.00-0.031); Immature Granulocyte Percent A 10.7 % (0-0.5); Immature Platelet Fraction Pct 5.8 % (0.9-11.2); Lymphocytes Absolute Auto 1.61 K/mm3 (0.9-3.2); Lymphocytes Percent Auto 22.9 % (18.3-44.2); Mean Corpuscular Hemoglobin 29.3 pg (26-34); Mean Corpuscular Volume 88.7 fl (80-100); Mean Platelet Volume 10.9 fl (7.4-10.4); Monocytes Absolute Auto 0.7 K/mm3 (0.1-0.6); Monocytes Percent Auto 10.5 % (2.6-8.5); Neutrophils Absolute Auto 3.8 K/mm3 (1.3-6.7); Neutrophils Percent Auto 54.4 % (45.5-73.1); Nucleated Red Blood Cells Perc 0.3 % (0.0-0.2); Platelet Count Result 53 k/mm3 (150-375); Red Blood Count 3.82 M/mm3 (4.6-6.20)
[2023-02-22 14:40] LABS: Partial Thromboplastin Time 38.6 SECONDS (22.3-36.8); Potassium 3.6 mmol/L (3.4-5.0)
[2023-02-22 14:44] LABS: Alanine Aminotransferase 77 U/L (6-50); Albumin Level 3.4 g/dL (3.5-5.1); Alkaline Phosphatase 565 U/L (38-126); Anion Gap 7 mmol/L (8-16); Aspartate Amino Transferase 153 U/L (17-59); Bilirubin,Total 1.2 mg/dL (0.2-1.3); Blood Urea Nitrogen 11 mg/dL (9-20); Calcium 10.7 mg/dL (8.4-10.2); Carbon Dioxide 26 mmol/L (22-30); Chloride 102 mmol/L (98-107); Estimated CRCL calculation 126 ml/min; Estimated Glomerular Filt Rate > 60; Glucose 106 mg/dL (65-110); Potassium 3.5 mmol/L (3.4-5.0); Sodium 135 mmol/L (137-145)
[2023-02-22 14:51] LABS: Transferrin 188 mg/dL (206-381)
--- NOTE | 2023-02-22 17:42 | WPDONCPN ---
Progress Note: A/P - Additional Plan Metastatic small cell lung cancer with liver metastasis and abdominal and chest lymphadenopathy. High CA 19-9 came back normal. I have reviewed the CT-guided biopsy of the liver results. I will ask for MediPort placement. I have discussed report with patient and the sister in detail today. Patient will have next generation sequencing done by [facility] as an outpatient. He will follow-up with us as an outpatient to start chemotherapy. Patient has office information for follow-up. - Time Spent With Patient Total time spent is greater than 50% in coordination of care (as documented) at patient's floor/unit and/or counseling patient: 25 - 35 minutes Subjective Interval history: Metastatic lung cancer Review of Systems - Review of Systems Patient is lying down comfortably. He has intermittent abdominal pain. Denies any nausea vomiting. No diarrhea and constipation. No other new complaint. Exam Vital signs: Temp Pulse Resp BP Pulse Ox O2 Del Method 36.2 C L 85 16 172/96 H 99 Room Air 02/22/23 14:00 02/22/23 14:00 02/22/23 14:00 02/22/23 14:00 02/22/23 14:00 02/22/23 08:40 Narrative: Lungs are clear to auscultation bilaterally Cardiovascular regular rate rhythm no murmurs Abdomen is slightly tender on the right upper quadrant bowel sounds are positive Extremities no edema PN: Objective Data - Labs CBC & Chem 7: 02/22/23 14:21 02/22/23 14:21 Labs: Laboratory Results - last 24 hr 02/19/23 02/22/23 02/22/23 06:04 06:09 14:21 WBC 7.4 7.0 RBC 3.68 L 3.82 L Hgb 11.0 L 11.2 L Hct 33.6 L 33.9 L MCV 91.3 88.7 MCH 29.9 29.3 MCHC 32.7 33.0 RDW 13.1 13.0 Plt Count 50 L 53 L MPV 10.0 10.9 H Immature Gran % (Auto) Not Reportable 10.7 H Neut % (Auto) Not Reportable 54.4 Lymph % (Auto) Not Reportable 22.9 [place] % (Auto) Not Reportable 10.5 H Eos % (Auto) Not Reportable 0.6 Baso % (Auto) Not Reportable 0.9 Lymph # (Auto) Not Reportable 1.61 [place] # (Auto) Not Reportable 0.7 H Eos # (Auto) Not Reportable 0.0 Baso # (Auto) Not Reportable 0.1 Abs Immat Gran (auto) Not Reportable 0.75 H Absolute Neuts (auto) Not Reportable 3.8 Absolute Nucleated RBC Not Reportable 0.0 Total Counted 100 Neutrophils % (Manual) 62 Band Neutrophils % 16 H Lymphocytes % (Manual) 11.0 L Monocytes % (Manual) 6 Eosinophils % (Manual) 3 Basophils % (Manual) 2 H Nucleated RBC % Not Reportable 0.3 H Abs Neuts (Manual) 5.77 Abs Lymphs (Manual) 0.81 L Abs Monocytes (Manual) 0.44 Absolute Eos (Manual) 0.22 Abs Basophils (Manual) 0.14 H Atypical Lymphocytes Present Platelet Estimate Decreased % Immature Plt Fraction 6.8 5.8 Hypochromasia 1+ Anisocytosis 2+ Schistocytes None seen APTT 38.6 H Sodium 135 L 135 L Potassium 3.1 L 3.5 Chloride 102 Carbon Dioxide 26 Anion Gap 7 L BUN 10 Creatinine 0.70 Estim Creat Clear Calc 109 Estimated GFR > 60 Glucose 84 Calcium 10.1 Magnesium Transferrin Total Bilirubin 0.7 AST 121 H ALT 67 H Alkaline Phosphatase 482 H Total Protein 6.0 L Albumin 3.1 L Lipase 1387 H CA 19-9 Antigen 24 02/22/23 14:21 WBC RBC Hgb Hct MCV MCH MCHC RDW Plt Count MPV Immature Gran % (Auto) Neut % (Auto) Lymph % (Auto) [place] % (Auto) Eos % (Auto) Baso % (Auto) Lymph # (Auto) [place] # (Auto) Eos # (Auto) Baso # (Auto) Abs Immat Gran (auto) Absolute Neuts (auto) Absolute Nucleated RBC Total Counted Neutrophils % (Manual) Band Neutrophils % Lymphocytes % (Manual) Monocytes % (Manual) Eosinophils % (Manual) Basophils % (Manual) Nucleated RBC % Abs Neuts (Manual) Abs Lymphs (Manual) Abs Monocytes (Manual) Absolute Eos (Manual) Abs Basophils (Manual) Atypical Lymphocytes Platelet Estimate % Immature Plt Fra
[2023-02-22 19:55] VITALS: PULSE 82
[2023-02-22] MEDS: CYCLOBENZAPRINE HCL 5 MG TABLET PO (19:55)
[2023-02-22] MEDS: SENNA/DOCUSATE SODIUM TABLET 1 TAB PO (19:55)
[2023-02-22 21:08] VITALS: BP 152/86; PULSE 93; RESP 14; TEMP 36.4; O2SAT 96
[2023-02-22 23:23] LABS: Glucose Point of Care 123 mg/dl (65-105)
[2023-02-23] VITALS (11 sets, daily range): BP systolic 138–153; BP diastolic 81–94; PULSE 73–93; RESP 14–18; TEMP 36.1–36.8; O2SAT 94–100
[2023-02-23] MEDS: oxyCODONE HCL (*CRX) 5 MG TAB IR 10 MG PO ×3 (01:04→09:06)
[2023-02-23] MEDS: CYCLOBENZAPRINE HCL 5 MG TABLET PO ×3 (06:04→21:44)
[2023-02-23 06:11] LABS: Glucose Point of Care 114 mg/dl (65-105)
[2023-02-23 06:16] LABS: Hemoglobin 10.8 g/dL (14.0-18.0); Immature Platelet Fraction Pct 6.3 % (0.9-11.2); Mean Corpuscular HGB Conc 33.8 g/dl (32-36); Mean Corpuscular Hemoglobin 29.8 pg (26-34); Mean Corpuscular Volume 88.4 fl (80-100); Platelet Count Result 48 k/mm3 (150-375); Red Blood Count 3.62 M/mm3 (4.6-6.20); Red Cell Distribution Width 12.7 % (11.5-14.5); White Blood Count 7.2 K/mm3 (4.5-10.0)
[2023-02-23 06:22] LABS: Alanine Aminotransferase 61 U/L (6-50); Albumin Level 3.2 g/dL (3.5-5.1); Alkaline Phosphatase 489 U/L (38-126); Anion Gap 9 mmol/L (8-16); Aspartate Amino Transferase 112 U/L (17-59); Bilirubin,Total 0.8 mg/dL (0.2-1.3); Blood Urea Nitrogen 13 mg/dL (9-20); Calcium 10.3 mg/dL (8.4-10.2); Carbon Dioxide 27 mmol/L (22-30); Chloride 100 mmol/L (98-107); Estimated CRCL calculation 112 ml/min; Estimated Glomerular Filt Rate > 60; Glucose 114 mg/dL (65-110); Lipase 1603 U/L (23-300); Phosphorus 4.6 mg/dL (2.5-4.5); Potassium 3.3 mmol/L (3.4-5.0); Sodium 136 mmol/L (137-145)
--- NOTE | 2023-02-23 06:50 | PM.IMPN ---
Progress Note: A&P Assessment and Plan (1) Acute pancreatitis: Code(s): K85.90 - Acute pancreatitis without necrosis or infection, unspecified Status: Acute Assessment and Plan: CT scan showed fat stranding was noted around the tail the pancreas consistent with acute interstitial pancreatitis IVF @ 150 ml per hour Clear liquid diet pain control with PRN norco monitor labs, lipase down from admission to 1557 02/20:Lipase today is 1182. S/p liver biopsy with IR. Still having pain and appears uncomfortable. Increased [place] 5-10 mg prn q4 hours with 4 mg of morphine for breakthrough pain. Continue with IVF. NPO expect sips with meds. 02/21: States that this current regimen of pain medication is helping with his pain however, he does not feel that the pain is getting any better. He feels similar to when he first came in. Lipase is also slightly elevated from yesterday. Will order MRCP today. May need GI input. 02/22: Pain is still uncontrolled. Lipase remains elevated. MRCP was negative for obstructive cause of pain. Does show lesions in the Pancrease. Changing his PO meds from norco to oxy with increased Dilaudid for breakthrough. He has not had any food in 5 + days. Will start with PPN today. 02/23: Lipase continues to increase. Will consult GI for further recommendations on management. 02/24: Persistent pancreatitis with difficulty achieving pain control. Lipase continues to increase. I have asked GI to come on board for further recommendations. I mean were just wants to his pain medication increasing his Oxy to 10-15 mg Q 4 p.r.n., scheduled Tylenol, and scheduled Toradol. He also has Lidoderm patches. GI is recommending adding pancreatic enzymes. (2) Liver masses: Code(s): R16.0 - Hepatomegaly, not elsewhere classified Status: Acute Assessment and Plan: CT scan showed multiple findings including greater than 40 masses in the liver measuring up to 3.2 cm, chest and abdominal lymphadenopathy, and widespread bone lesions consistent with metastatic disease. US liver biopsy done today, pathology pending oncology consulted 02/20: Oncology is suspecting primary source of cancer from Pancrease vs lung. Awaiting biopsy results. I made him aware that he does not need to remain inpatient until biopsy results. 02/22: Liver biopsy shows primary small cell carcinoma of the lung and imaging has confirmed mets to bone, liver, Pancrease, and abdominal lymphadenopathy. Will need oncology follow up at outpatient for developing plan of care. Asking Dr Talavera to call and speak with the family today as they have questions. 02/23: General surgery has been consulted for placement of Mediport for outpatient chemotherapy. Per General surgery's note patient has requested medical port placement sign outpatient. Patient may benefit from hospice consult. Will discuss with him and his today. (3) Bone lesion: Code(s): M89.9 - Disorder of bone, unspecified Status: Acute Assessment and Plan: CT scan showed multiple findings including greater than 40 masses in the liver measuring up to 3.2 cm, chest and abdominal lymphadenopathy, and widespread bone lesions consistent with metastatic disease. oncology consulted 02/20: No musculoskeletal complaints at this time. 02/21: Chronic back pain. Mab[place]ott is helping with this. Can add Lidoderm patch as needed. 02/22: He says the lidoderm patch is helping some. Will continue with this and change up his oral pain regimen. Add flexeril prn as well. 02/23: Continue with trying to achieve pain control (4) Elevated LFTs: Code(s): R79.89 - Other specified abnormal findings of blood chemistry Status: Acute Assessment and Plan: LFTs are elevated, likely due to the innumerable liver masses. continue to monitor 02/20: Slowly downtrending. Monitor with daily labs. 02/21: Essentially remains the same today.
[2023-02-23] MEDS: POTASSIUM CHLORIDE 20 MEQ ER TABLET 40 MEQ PO (07:03)
[2023-02-23 07:14] LABS: Band Neutrophils Percent 22 % (0-6); Eosinophils Absolute Manual 0.14 K/mm3 (0.02-0.5); Eosinophils Percent Manual 2 % (0-4); Lymphocytes Absolute Manual 0.64 K/mm3 (1.1-4.5); Metamyelocytes Percent 3 %; Monocytes Absolute Manual 0.79 K/mm3 (0.1-0.90); Monocytes Percent Manual 11 % (3-9); Myelocytes Percent 4 %; Neutrophils Absolute Manual 5.04 K/mm3 (1.3-6.7); Neutrophils Percent Manual 48 % (46-73); Platelet Estimate Decreased (Adequate); Promyelocytes Percent 1 %; Total Cells Counted 100
[2023-02-23 07:15] LABS: Anisocytosis 2+ (NORMAL); Burr Cells 2+ (NORMAL); Hypochromasia 2+ (NORMAL); Schistocytes None Seen (NORMAL)
[2023-02-23] MEDS: POTASSIUM CHLORIDE INJ 40 MEQ in SODIUM CHLORIDE 0.9% IV 500 ML 130 MEQ IVPB (08:57)
[2023-02-23] MEDS: DEXTROSE 5%/0.9% SOD CHL 1,000 ML 20 ML IV CONT (09:03)
[2023-02-23] MEDS: EZETIMIBE 10 MG TABLET PO (09:06)
[2023-02-23] MEDS: lisinopriL 20 MG TABLET PO (09:06)
[2023-02-23] MEDS: AMOXICILLIN/CLAVULANATE K 875-125 MG TAB 1 TABLET PO (09:06)
[2023-02-23] MEDS: carvediloL 25 MG TABLET PO ×2 (09:06→20:09)
[2023-02-23] MEDS: guaiFENesin 12 HR 600 MG TABCR 1200 MG PO ×2 (09:06→20:10)
--- NOTE | 2023-02-23 09:57 | PM.CNGS ---
Assessment and Plan Assessment and plan (1) Metastatic primary lung cancer: Code(s): C34.90 - Malignant neoplasm of unspecified part of unspecified bronchus or lung Status: Acute Assessment and Plan: Will need urgent chemotherapy as outpatient per oncology, will place port at some point prior to initiation of chemo, patient would like this to be done as outpatient as possible (2) Acute pancreatitis: Code(s): K85.90 - Acute pancreatitis without necrosis or infection, unspecified Status: Acute Assessment and Plan: Continue bowel rest, await GI consultation History of Present Illness Consult details Consult date: 02/23/23 Reason for consult: other (port placement) Requesting physician: Garth Farr MD Narrative: The patient is a 57-year-old male with workup significant for extensive metastatic lung cancer. The patient has also developed severe pancreatitis causing abdominal pain, anorexia. Recent workup, including IR liver biopsy came back with metastatic lung cancer. Oncology has seen the patient and recommends urgent chemotherapy as outpatient. We have been consulted for MediPort placement as access for chemotherapy. The patient denies any previous central venous catheterization. Review of Systems Review of Systems: All systems reviewed & are unremarkable except as noted in HPI and below PMFSH Past Medical History Medical History Abdominal aortic aneurysm Per patient report last measuring around 4 cm. Coronary artery disease Dyslipidemia Hypertension Ischemic cardiomyopathy EF was 35 to 40% at time of non STEMI in 06/2010 EF was 50% on cardiac catheterization in 12/2015. Non-ST elevation myocardial infarction (NSTEMI) (06/2010) Surgical History Surgical History History of cardiac catheterization (12/2015) Patent stents, 40 to 50% stenosis of the RCA and mid LAD with an EF of 50%. History of coronary artery stent placement (06/2010) Stents to the mid right coronary artery and proximal PLV. History of spinal fusion Family History Family History Grandparent Hypertension Diabetes mellitus Mother Cerebrovascular accident Heart disease Father Family history of heart disease in male family member before age 55 Heart disease Social History Social History Social History: Surrogate medical decision maker: Ayesha Grace, spouse. Code status: Full code. Smoking packs per day: 0.5 Smoking cigarettes per day: 10.0 Years smoked: 40 Smoking pack-years: 20.00 Smoking status: Current every day smoker Alcohol intake: never Substance use: never Substance use type: does not use Lack of Transportation: No Lack of Food: Never True Current Housing: Decline to Answer Concerned About Future Housing: No Difficulty Paying Gas/Electric Bills: No Difficulty Paying for Meds: No Currently Unemployed: No Education: Associate Degree Difficulty w/ Childcare or Family Care: No Additional living arrangements comments: . Has 3 children. 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 Spiritual care concerns: No Meds Home Medications and Allergies Home Medications Medication Instructions Recorded Confirmed Type carvedilol 25 mg tablet 25 mg PO BID 02/18/23 02/18/23 History ezetimibe 10 mg tablet 10 mg PO DAILY 02/18/23 02/18/23 History lisinopril 20 mg tablet 20 mg PO DAILY 02/18/23 02/18/23 History rosuvastatin 40 mg tablet 20 mg PO DAILY 02/18/23 02/18/23 History Allergies Allergy/AdvReac Type Severity Reaction Status Date / Time No Known Allergies Allergy Mild Verified 02/18/23 12:05 Vital Signs Vital Signs - 24 hr 02/22/23 14:00 02/22/23 19:55 02/22/23 21:08 Temperature 36.2 C L
--- NOTE | 2023-02-23 10:08 | WPDGICN ---
Assessment and Plan Assessment and plan (1) Abdominal pain: Code(s): R10.9 - Unspecified abdominal pain Status: Acute Assessment and Plan: patient with abdominal pain. This appears to be a the basis of metastatic lung cancer. Imaging studies reveal pancreatitis with pancreatic metastases as well as liver metastases and intra-abdominal lymphadenopathy. Suggest pain control be initiated. Allow diet as tolerated. Oncology opinion may be beneficial. (2) Metastatic primary lung cancer: Code(s): C34.90 - Malignant neoplasm of unspecified part of unspecified bronchus or lung Status: Acute Assessment and Plan: Patient with lung cancer metastatic to the abdomen. Appears to be widely disseminated. Hopefully oncology has some therapy that may be helpful. (3) Liver masses: Code(s): R16.0 - Hepatomegaly, not elsewhere classified Status: Acute (4) Acute pancreatitis: Code(s): K85.90 - Acute pancreatitis without necrosis or infection, unspecified Status: Acute Assessment and Plan: patient with elevated lipase appears be on the basis of cancer metastatic to the pancreas. Plan for supportive care. Pain control. Patient may benefit from supplemental pancreatic enzymes, but pain may also be from metastases more diffuse throughout his abdomen. GI Consult Note Consult date/time: 02/23/23 10:08 Reason for consult: Pancreatitis HPI: Jayy Grcae is a 57 year old male with underlying history of coronary artery disease and cardiomyopathy. Known to have abdominal aortic aneurysm. Presented to the hospital with 2 week history of diffuse abdominal pain. CT scan imaging reveals diffuse metastatic disease to the abdomen, lymphadenopathy, liver and pancreas. Patient is felt to have pancreatitis on this basis. An MRCP was normal with no evidence of gallstones. Pancreatitis was confirmed. Biopsies of the liver confirms this to be metastatic lung cancer. Patient continues to have ongoing diffuse abdominal pain. He denies a fever present. I have been consulted because of ongoing pancreatitis on this basis. Patient denies significant alcohol intake. Review of Systems Review of Systems: Review of systems noncontributory. [facility] Past Medical History Medical History Abdominal aortic aneurysm Per patient report last measuring around 4 cm. Coronary artery disease Dyslipidemia Hypertension Ischemic cardiomyopathy EF was 35 to 40% at time of non STEMI in 06/2010 EF was 50% on cardiac catheterization in 12/2015. Non-ST elevation myocardial infarction (NSTEMI) (06/2010) Surgical History Surgical History History of cardiac catheterization (12/2015) Patent stents, 40 to 50% stenosis of the RCA and mid LAD with an EF of 50%. History of coronary artery stent placement (06/2010) Stents to the mid right coronary artery and proximal PLV. History of spinal fusion Family History Family History Grandparent Hypertension Diabetes mellitus Mother Cerebrovascular accident Heart disease Father Family history of heart disease in male family member before age 55 Heart disease Social History Social History Social History: Surrogate medical decision maker: Ayesha Contehbetter, spouse. Code status: Full code. Smoking packs per day: 0.5 Smoking cigarettes per day: 10.0 Years smoked: 40 Smoking pack-years: 20.00 Smoking status: Current every day smoker Alcohol intake: never Substance use: never Substance use type: does not use Lack of Transportation: No Lack of Food: Never True Current Housing: Decline to Answer Concerned About Future Housing: No Difficulty Paying Gas/Electric Bills: No Difficulty Paying for Meds: No C
[2023-02-23 11:29] LABS: Glucose Point of Care 120 mg/dl (65-105)
[2023-02-23] MEDS: LIPASE/AMYLASE/PROTEASE 12,000 UNITS CAP 2 CAP PO ×2 (12:04→15:48)
[2023-02-23] MEDS: HYDROmorphone HCL INJ (*CRX) 1 MG/ML SYR IV PUSH ×3 (12:05→20:08)
[2023-02-23 12:50] LABS: Triglycerides 230 mg/dL (<150)
[2023-02-23] MEDS: AMINO ACIDS 4.25%/D5W/LYTES/CA 2,000 ML 80 ML IV CONT (13:50)
[2023-02-23] MEDS: ACETAMINOPHEN 500 MG TABLET PO ×2 (13:53→20:09)
[2023-02-23] MEDS: KETOROLAC 30 MG/ML VIAL (*BKC) IV PUSH ×2 (13:53→20:08)
[2023-02-23] MEDS: TUBING, BLOOD PLUM PUMP TUBING 1 EACH XX (14:46)
[2023-02-23 15:47] LABS: Potassium 3.9 mmol/L (3.4-5.0)
[2023-02-23] MEDS: oxyCODONE HCL (*CRX) 5 MG TAB IR 15 MG PO ×2 (15:47→20:10)
[2023-02-23 18:19] LABS: Glucose Point of Care 111 mg/dl (65-105)
[2023-02-23] MEDS: SENNA/DOCUSATE SODIUM TABLET 1 TAB PO (20:10)
[2023-02-23 23:24] LABS: Glucose Point of Care 111 mg/dl (65-105)
[2023-02-24] MEDS: HYDROmorphone HCL INJ (*CRX) 1 MG/ML SYR IV PUSH ×6 (01:57→21:07)
[2023-02-24] MEDS: oxyCODONE HCL (*CRX) 5 MG TAB IR 15 MG PO ×6 (01:58→21:08)
[2023-02-24] MEDS: KETOROLAC 30 MG/ML VIAL (*BKC) IV PUSH ×3 (01:58→13:49)
[2023-02-24] MEDS: ACETAMINOPHEN 500 MG TABLET PO ×4 (01:59→21:09)
[2023-02-24 05:26] VITALS: BP 145/79; PULSE 73; RESP 14; TEMP 36.3; O2SAT 96
[2023-02-24 06:05] LABS: Glucose Point of Care 99 mg/dl (65-105)
[2023-02-24] MEDS: CYCLOBENZAPRINE HCL 5 MG TABLET PO ×2 (06:28→17:26)
[2023-02-24 07:07] LABS: Hematocrit 32.9 % (42.0-52.0); Hemoglobin 10.4 g/dL (14.0-18.0); Mean Corpuscular HGB Conc 31.6 g/dl (32-36); Mean Corpuscular Hemoglobin 29.1 pg (26-34); Mean Corpuscular Volume 92.2 fl (80-100); Mean Platelet Volume 10.4 fl (7.4-10.4); Platelet Count Result 106 k/mm3 (150-375); Red Blood Count 3.57 M/mm3 (4.6-6.20); Red Cell Distribution Width 13.1 % (11.5-14.5)
[2023-02-24 07:18] LABS: Alanine Aminotransferase 66 U/L (6-50); Albumin Level 3.4 g/dL (3.5-5.1); Alkaline Phosphatase 550 U/L (38-126); Anion Gap 7 mmol/L (8-16); Aspartate Amino Transferase 122 U/L (17-59); Bilirubin,Total 0.7 mg/dL (0.2-1.3); Blood Urea Nitrogen 18 mg/dL (9-20); Calcium 10.7 mg/dL (8.4-10.2); Carbon Dioxide 28 mmol/L (22-30); Chloride 101 mmol/L (98-107); Estimated CRCL calculation 86 ml/min; Estimated Glomerular Filt Rate > 60; Glucose 91 mg/dL (65-110); Phosphorus 5.2 mg/dL (2.5-4.5); Potassium 3.9 mmol/L (3.4-5.0); Sodium 136 mmol/L (137-145)
--- NOTE | 2023-02-24 07:48 | PM.IMPN ---
Progress Note: A&P Assessment and Plan (1) Acute pancreatitis: Code(s): K85.90 - Acute pancreatitis without necrosis or infection, unspecified Status: Acute Assessment and Plan: CT scan showed fat stranding was noted around the tail the pancreas consistent with acute interstitial pancreatitis IVF @ 150 ml per hour Clear liquid diet pain control with PRN norco monitor labs, lipase down from admission to 1557 02/20:Lipase today is 1182. S/p liver biopsy with IR. Still having pain and appears uncomfortable. Increased [place] 5-10 mg prn q4 hours with 4 mg of morphine for breakthrough pain. Continue with IVF. NPO expect sips with meds. 02/21: States that this current regimen of pain medication is helping with his pain however, he does not feel that the pain is getting any better. He feels similar to when he first came in. Lipase is also slightly elevated from yesterday. Will order MRCP today. May need GI input. 02/22: Pain is still uncontrolled. Lipase remains elevated. MRCP was negative for obstructive cause of pain. Does show lesions in the Pancrease. Changing his PO meds from norco to oxy with increased Dilaudid for breakthrough. He has not had any food in 5 + days. Will start with PPN today. 02/23: Persistent pancreatitis with difficulty achieving pain control. Lipase continues to increase. I have asked GI to come on board for further recommendations. I mean were just wants to his pain medication increasing his Oxy to 10-15 mg Q 4 p.r.n., scheduled Tylenol, and scheduled Toradol. He also has Lidoderm patches. GI is recommending adding pancreatic enzymes. 02/24: Continues with high pain levels. Hoping increasing bowel regimen will produce BM and provide some relief. Advancing his diet to low fat to see if his pain remains unchanged with eating. (2) Liver masses: Code(s): R16.0 - Hepatomegaly, not elsewhere classified Status: Acute Assessment and Plan: CT scan showed multiple findings including greater than 40 masses in the liver measuring up to 3.2 cm, chest and abdominal lymphadenopathy, and widespread bone lesions consistent with metastatic disease. US liver biopsy done today, pathology pending oncology consulted 02/20: Oncology is suspecting primary source of cancer from Pancrease vs lung. Awaiting biopsy results. I made him aware that he does not need to remain inpatient until biopsy results. 02/22: Liver biopsy shows primary small cell carcinoma of the lung and imaging has confirmed mets to bone, liver, Pancrease, and abdominal lymphadenopathy. Will need oncology follow up at outpatient for developing plan of care. Asking Dr Talavera to call and speak with the family today as they have questions. 02/23: General surgery has been consulted for placement of Mediport for outpatient chemotherapy. Per General surgery's note patient has requested medical port placement sign outpatient. Patient may benefit from hospice consult. Will discuss with him and his today. (3) Bone lesion: Code(s): M89.9 - Disorder of bone, unspecified Status: Acute Assessment and Plan: CT scan showed multiple findings including greater than 40 masses in the liver measuring up to 3.2 cm, chest and abdominal lymphadenopathy, and widespread bone lesions consistent with metastatic disease. oncology consulted 02/20: No musculoskeletal complaints at this time. 02/21: Chronic back pain. Baker is helping with this. Can add Lidoderm patch as needed. 02/22: He says the lidoderm patch is helping some. Will continue with this and change up his oral pain regimen. Add flexeril prn as well. 02/23: Continue with trying to achieve pain control (4) Elevated LFTs: Code(s): R79.89 - Other specified abnormal findings of blood chemistry Status: Acute Assessment and Plan: LFTs are elevated, likely due to the innumerable liver masses. continue to monitor
[2023-02-24 07:54] LABS: Band Neutrophils Percent 20 % (0-6); Eosinophils Absolute Manual 0.14 K/mm3 (0.02-0.5); Eosinophils Percent Manual 2 % (0-4); Hypochromasia 1+ (NORMAL); Monocytes Percent Manual 10 % (3-9); Myelocytes Percent 1 %; Neutrophils Absolute Manual 4.69 K/mm3 (1.3-6.7); Neutrophils Percent Manual 47 % (46-73); Platelet Estimate Decreased (Adequate); Schistocytes None Seen (NORMAL); Total Cells Counted 100
[2023-02-24] MEDS: lisinopriL 20 MG TABLET PO (09:02)
[2023-02-24] MEDS: carvediloL 25 MG TABLET PO ×2 (09:02→21:09)
[2023-02-24] MEDS: LIPASE/AMYLASE/PROTEASE 12,000 UNITS CAP 2 CAP PO ×3 (09:02→17:25)
[2023-02-24] MEDS: guaiFENesin 12 HR 600 MG TABCR 1200 MG PO ×2 (09:02→21:09)
[2023-02-24] MEDS: EZETIMIBE 10 MG TABLET PO (09:02)
[2023-02-24] MEDS: ACETAMINOPHEN 325 MG TABLET 650 MG PO (09:03)
--- NOTE | 2023-02-24 09:19 | WPDGIPROGNO ---
Progress Note: A&P Assessment and Plan (1) Abdominal pain: Code(s): R10.9 - Unspecified abdominal pain Status: Acute Assessment and Plan: Patient with diffuse abdominal pain. Likely related to tumor burden. CT scan imaging reveals lung metastases to the liver, pancreas, lymph nodes. Continue pain control as much as feasible. He may be coming a constipated given the narcotic use. (2) Constipation: Code(s): K59.00 - Constipation, unspecified Status: Acute Assessment and Plan: Patient reports now bowel movement for at least 3 weeks. Likely narcotics contribute to this. No signs of until obstruction by imaging studies obstructive series to be repeated today. Will try Dulcolax suppositories. Perhaps magnesium citrate. Consider Gastrografin lower GI if necessary. (3) Metastatic primary lung cancer: Code(s): C34.90 - Malignant neoplasm of unspecified part of unspecified bronchus or lung Status: Acute Assessment and Plan: Oncology follow-up strongly suggested. Given tumor burden (4) Acute pancreatitis: Code(s): K85.90 - Acute pancreatitis without necrosis or infection, unspecified Status: Acute Assessment and Plan: patient's pancreatitis appears to be on the basis of metastatic carcinoma to the pancreas. Supportive care with pain control advised. (5) Liver masses: Code(s): R16.0 - Hepatomegaly, not elsewhere classified Status: Acute Assessment and Plan: Patient with metastases throughout his abdomen including the liver, pancreas lymph nodes. Subjective Date/time seen: 02/24/23 09:19 Interval history: Patient continues to have rather diffuse abdominal pain. He states he has had no bowel movement for at least 3 weeks. Poor appetite reported. Not interested liquid diet ordered at this point. Review of Systems Review of Systems: Review of systems is noncontributory. Exam Narrative: Physical exam reveals patient to be alert. Vital signs stable. HEENT exam unremarkable. Lungs are clear. Heart without murmur. Abdomen is somewhat protuberant. Bowel sounds are diminished. Diffuse tenderness appreciated. Objective Data Vital Signs Vital Signs: Vital Signs - 24 hr 02/23/23 14:16 02/23/23 14:43 02/23/23 14:00 Temperature 97.5 F L 98.3 F 97.6 F Pulse Rate 88 79 86 Respiratory Rate 16 18 14 Blood Pressure 152/94 H 140/90 138/85 Pulse Oximetry 97 96 94 12/02/23 15:43 02/23/23 16:11 02/23/23 16:27 Temperature 98.3 F 97.1 F L 98.3 F Pulse Rate 73 86 76 Respiratory Rate 18 14 18 Blood Pressure 144/90 H 152/94 H 148/87 H Pulse Oximetry 96 100 98 02/23/23 17:27 02/23/23 20:09 02/23/23 21:29 Temperature 98.3 F 98.2 F Pulse Rate 75 75 80 Respiratory Rate 18 15 Blood Pressure 147/94 H 140/81 Pulse Oximetry 97 95 02/24/23 05:26 Temperature 97.3 F L Pulse Rate 73 Respiratory Rate 14 Blood Pressure 145/79 H Pulse Oximetry 96 Intake/Output Intake/Output: Intake & Output 02/21/23 02/22/23 02/23/23 02/24/23 23:59 23:59 23:59 23:59 Intake Total 5078 2180 6150 1500 Output Total 12 Balance 5078 2168 6150 1500 Meds/Results Medications: Active Medications Generic Name Dose Route Start Last Admin Trade Name Freq PRN Reason Stop Dose Admin Acetaminophen 650 mg 02/18/23 17:05 02/24/23 09:03 Acetaminophen 325 Mg Tablet PO 650 mg Q6H PRN Administration Mild Pain (1-3) or Fever Acetaminophen 500 mg 02/23/23 14:00 02/24/23 09:03 Acetaminophen 500 Mg Tablet PO 500 mg Q6H JADA Administration Albuterol 2.5 mg 02/20/23 11:23 Albuterol Sulfate Neb 2.5 Mg/3 Ml Inh INHALATION Q4HRT PRN Shortness Of Breath Lipase/Protease/Amylase 2 cap 02/23/23 12:00 02/24/23 09:02 Lipase/Amylase/Protease 12,000 Units Cap PO 2 cap TIDWM JADA Administration Bisacodyl 10 mg 02/20/23 10:55 Bisacodyl 10 Mg Suppository RECTAL QAM PRN
[2023-02-24] MEDS: DEXTROSE 5%/0.9% SOD CHL 1,000 ML 20 ML IV CONT (11:00)
[2023-02-24] MEDS: MAGNESIUM CITRATE 300 ML BTL PO (11:01)
[2023-02-24] MEDS: BISACODYL 10 MG SUPPOSITORY RECTAL (11:01)
[2023-02-24 11:41] LABS: Glucose Point of Care 108 mg/dl (65-105)
[2023-02-24] MEDS: AMINO ACIDS 4.25%/D5W/LYTES/CA 2,000 ML 80 ML IV CONT (13:48)
[2023-02-24 14:00] VITALS: BP 118/72; PULSE 80; RESP 14; TEMP 36.3; O2SAT 96
[2023-02-24 21:09] VITALS: PULSE 80
[2023-02-24] MEDS: SENNA/DOCUSATE SODIUM TABLET 1 TAB PO (21:09)
[2023-02-24 22:00] VITALS: BP 118/77; PULSE 90; RESP 18; TEMP 36.6; O2SAT 98
[2023-02-25] MEDS: HYDROmorphone HCL INJ (*CRX) 1 MG/ML SYR IV PUSH ×5 (00:25→21:43)
[2023-02-25] MEDS: CYCLOBENZAPRINE HCL 5 MG TABLET PO ×3 (00:26→21:42)
[2023-02-25] MEDS: ACETAMINOPHEN 500 MG TABLET PO ×4 (02:04→21:42)
[2023-02-25] MEDS: oxyCODONE HCL (*CRX) 5 MG TAB IR 15 MG PO ×5 (02:04→23:43)
[2023-02-25 06:00] VITALS: BP 147/104; PULSE 87; RESP 18; TEMP 36.3; O2SAT 97
[2023-02-25 06:18] LABS: Glucose Point of Care 100 mg/dl (65-105)
[2023-02-25 06:59] LABS: Hematocrit 30.8 % (42.0-52.0); Hemoglobin 10.1 g/dL (14.0-18.0); Mean Corpuscular HGB Conc 32.8 g/dl (32-36); Mean Corpuscular Volume 91.4 fl (80-100); Mean Platelet Volume 10.4 fl (7.4-10.4); Platelet Count Result 90 k/mm3 (150-375); Red Blood Count 3.37 M/mm3 (4.6-6.20); Red Cell Distribution Width 13.2 % (11.5-14.5); White Blood Count 5.5 K/mm3 (4.5-10.0)
[2023-02-25 07:11] LABS: Alanine Aminotransferase 78 U/L (6-50); Albumin Level 3.2 g/dL (3.5-5.1); Alkaline Phosphatase 777 U/L (38-126); Anion Gap 8 mmol/L (8-16); Aspartate Amino Transferase 147 U/L (17-59); Bilirubin,Total 0.7 mg/dL (0.2-1.3); Blood Urea Nitrogen 22 mg/dL (9-20); Calcium 10.2 mg/dL (8.4-10.2); Carbon Dioxide 27 mmol/L (22-30); Chloride 98 mmol/L (98-107); Estimated CRCL calculation 97 ml/min; Estimated Glomerular Filt Rate > 60; Glucose 92 mg/dL (65-110); Magnesium 2.5 mg/dL (1.6-2.3); Phosphorus 4.8 mg/dL (2.5-4.5); Potassium 4.1 mmol/L (3.4-5.0); Sodium 133 mmol/L (137-145)
[2023-02-25 07:19] LABS: Transferrin 193 mg/dL (206-381)
[2023-02-25 07:23] LABS: Triglycerides 204 mg/dL (<150)
[2023-02-25 07:32] LABS: INR 1.2; Prothrombin Time 15.5 Seconds (11.1-14.7)
[2023-02-25 07:33] LABS: Partial Thromboplastin Time 39.4 SECONDS (22.3-36.8)
[2023-02-25 08:03] LABS: Band Neutrophils Percent 15 % (0-6); Lymphocytes Absolute Manual 2.09 K/mm3 (1.1-4.5); Metamyelocytes Percent 2 %; Monocytes Absolute Manual 0.33 K/mm3 (0.1-0.90); Monocytes Percent Manual 6 % (3-9); Neutrophils Absolute Manual 2.97 K/mm3 (1.3-6.7); Neutrophils Percent Manual 39 % (46-73); Nucleated Red Blood Cells 1 %; Platelet Estimate Decreased (Adequate); Total Cells Counted 100
[2023-02-25 08:04] LABS: Hypochromasia 1+ (NORMAL); Schistocytes None Seen (NORMAL)
[2023-02-25 08:30] VITALS: BP 159/94; PULSE 87; RESP 18; TEMP 36.6; O2SAT 97
[2023-02-25] MEDS: LIPASE/AMYLASE/PROTEASE 12,000 UNITS CAP 2 CAP PO ×3 (09:16→17:05)
[2023-02-25] MEDS: EZETIMIBE 10 MG TABLET PO (09:16)
[2023-02-25] MEDS: lisinopriL 20 MG TABLET PO (09:16)
[2023-02-25] MEDS: guaiFENesin 12 HR 600 MG TABCR 1200 MG PO ×2 (09:17→21:42)
[2023-02-25 09:21] VITALS: PULSE 96
[2023-02-25] MEDS: carvediloL 25 MG TABLET PO ×2 (09:21→21:41)
--- NOTE | 2023-02-25 10:47 | PM.IMPN ---
Progress Note: A&P Assessment and Plan (1) Acute pancreatitis: Code(s): K85.90 - Acute pancreatitis without necrosis or infection, unspecified Status: Acute Assessment and Plan: CT scan showed fat stranding was noted around the tail the pancreas consistent with acute interstitial pancreatitis IVF @ 150 ml per hour Clear liquid diet pain control with PRN norco monitor labs, lipase down from admission to 1557 02/20:Lipase today is 1182. S/p liver biopsy with IR. Still having pain and appears uncomfortable. Increased [place] 5-10 mg prn q4 hours with 4 mg of morphine for breakthrough pain. Continue with IVF. NPO expect sips with meds. 02/21: States that this current regimen of pain medication is helping with his pain however, he does not feel that the pain is getting any better. He feels similar to when he first came in. Lipase is also slightly elevated from yesterday. Will order MRCP today. May need GI input. 02/22: Pain is still uncontrolled. Lipase remains elevated. MRCP was negative for obstructive cause of pain. Does show lesions in the Pancrease. Changing his PO meds from norco to oxy with increased Dilaudid for breakthrough. He has not had any food in 5 + days. Will start with PPN today. 02/23: Persistent pancreatitis with difficulty achieving pain control. Lipase continues to increase. I have asked GI to come on board for further recommendations. I mean were just wants to his pain medication increasing his Oxy to 10-15 mg Q 4 p.r.n., scheduled Tylenol, and scheduled Toradol. He also has Lidoderm patches. GI is recommending adding pancreatic enzymes. 02/24: Continues with high pain levels. Hoping increasing bowel regimen will produce BM and provide some relief. Advancing his diet to low fat to see if his pain remains unchanged with eating. 02/25: Unchanged, still elevated pain levels, was able to have BM which was liquid. Patient remains on PPN. Liver enzymes rising slightly. (2) Liver masses: Code(s): R16.0 - Hepatomegaly, not elsewhere classified Status: Acute Assessment and Plan: CT scan showed multiple findings including greater than 40 masses in the liver measuring up to 3.2 cm, chest and abdominal lymphadenopathy, and widespread bone lesions consistent with metastatic disease. US liver biopsy done today, pathology pending oncology consulted 02/20: Oncology is suspecting primary source of cancer from Pancrease vs lung. Awaiting biopsy results. I made him aware that he does not need to remain inpatient until biopsy results. 02/22: Liver biopsy shows primary small cell carcinoma of the lung and imaging has confirmed mets to bone, liver, Pancrease, and abdominal lymphadenopathy. Will need oncology follow up at outpatient for developing plan of care. Asking Dr Talavera to call and speak with the family today as they have questions. 02/23: General surgery has been consulted for placement of Mediport for outpatient chemotherapy. Per General surgery's note patient has requested medical port placement sign outpatient. Patient may benefit from hospice consult. Will discuss with him and his today. (3) Bone lesion: Code(s): M89.9 - Disorder of bone, unspecified Status: Acute Assessment and Plan: CT scan showed multiple findings including greater than 40 masses in the liver measuring up to 3.2 cm, chest and abdominal lymphadenopathy, and widespread bone lesions consistent with metastatic disease. oncology consulted 02/20: No musculoskeletal complaints at this time. 02/21: Chronic back pain. Alvaro is helping with this. Can add Lidoderm patch as needed. 02/22: He says the lidoderm patch is helping some. Will continue with this and change up his oral pain regimen. Add flexeril prn as well. 02/23: Continue with trying to achieve pain control 02/25: Attempting pain control (4) Elevated LFTs: Code(s): R79.89 - Other specified abnormal
[2023-02-25 11:34] LABS: Glucose Point of Care 102 mg/dl (65-105)
[2023-02-25 14:00] VITALS: BP 146/88; PULSE 83; RESP 16; TEMP 36.5; O2SAT 99
[2023-02-25] MEDS: AMINO ACIDS 4.25%/D5W/LYTES/CA 2,000 ML 80 ML IV CONT (17:06)
[2023-02-25 17:57] LABS: Glucose Point of Care 102 mg/dl (65-105)
[2023-02-25 21:39] VITALS: BP 150/86; PULSE 94; RESP 22; TEMP 36.5; O2SAT 96
[2023-02-25 21:41] VITALS: PULSE 94
[2023-02-25] MEDS: SENNA/DOCUSATE SODIUM TABLET 1 TAB PO (21:42)
[2023-02-25 23:44] LABS: Glucose Point of Care 99 mg/dl (65-105)
[2023-02-26] MEDS: HYDROmorphone HCL INJ (*CRX) 1 MG/ML SYR IV PUSH ×2 (01:38→06:58)
[2023-02-26] MEDS: ACETAMINOPHEN 500 MG TABLET PO ×4 (01:38→21:21)
[2023-02-26] MEDS: oxyCODONE HCL (*CRX) 5 MG TAB IR 15 MG PO ×5 (04:30→21:20)
[2023-02-26 05:39] LABS: Glucose Point of Care 95 mg/dl (65-105)
[2023-02-26 05:44] VITALS: BP 122/88; PULSE 90; RESP 20; TEMP 36.6; O2SAT 98
[2023-02-26 06:34] LABS: Hematocrit 30.4 % (42.0-52.0); Hemoglobin 9.8 g/dL (14.0-18.0); Mean Corpuscular HGB Conc 32.2 g/dl (32-36); Mean Corpuscular Hemoglobin 29.7 pg (26-34); Mean Corpuscular Volume 92.1 fl (80-100); Mean Platelet Volume 10.1 fl (7.4-10.4); Platelet Count Result 71 k/mm3 (150-375); Red Cell Distribution Width 13.3 % (11.5-14.5); White Blood Count 5.6 K/mm3 (4.5-10.0)
[2023-02-26 06:51] LABS: Alanine Aminotransferase 115 U/L (6-50); Albumin Level 3.4 g/dL (3.5-5.1); Alkaline Phosphatase 1144 U/L (38-126); Anion Gap 6 mmol/L (8-16); Aspartate Amino Transferase 213 U/L (17-59); Bilirubin,Total 0.8 mg/dL (0.2-1.3); Blood Urea Nitrogen 22 mg/dL (9-20); Calcium 10.4 mg/dL (8.4-10.2); Carbon Dioxide 32 mmol/L (22-30); Chloride 96 mmol/L (98-107); Estimated CRCL calculation 99 ml/min; Estimated Glomerular Filt Rate > 60; Glucose 94 mg/dL (65-110); Phosphorus 5.2 mg/dL (2.5-4.5); Potassium 4.2 mmol/L (3.4-5.0); Sodium 134 mmol/L (137-145)
[2023-02-26 07:17] LABS: Band Neutrophils Percent 10 % (0-6); Lymphocytes Absolute Manual 1.73 K/mm3 (1.1-4.5); Monocytes Absolute Manual 0.61 K/mm3 (0.1-0.90); Monocytes Percent Manual 11 % (3-9); Neutrophils Absolute Manual 3.24 K/mm3 (1.3-6.7); Neutrophils Percent Manual 48 % (46-73); Nucleated Red Blood Cells 1 %; Platelet Estimate Decreased (Adequate); Schistocytes None Seen (NORMAL); Total Cells Counted 100
[2023-02-26 08:34] LABS: Lipase 2593 U/L (23-300)
[2023-02-26 08:39] VITALS: PULSE 88
[2023-02-26] MEDS: lisinopriL 20 MG TABLET PO (08:39)
[2023-02-26] MEDS: carvediloL 25 MG TABLET PO ×2 (08:39→21:21)
[2023-02-26] MEDS: guaiFENesin 12 HR 600 MG TABCR 1200 MG PO ×2 (08:39→21:21)
[2023-02-26] MEDS: EZETIMIBE 10 MG TABLET PO (08:41)
[2023-02-26] MEDS: DEXTROSE 5%/0.9% SOD CHL 1,000 ML 20 ML IV CONT (08:41)
[2023-02-26 11:33] LABS: Glucose Point of Care 107 mg/dl (65-105)
--- NOTE | 2023-02-26 11:46 | PCNFU ---
Nutrition Follow-Up Complete: Inadequate energy intake related to diet order as evidenced by NPO and clear liquid status. Goal:Meet estimated needs via po diet PO intake 75% of meals Pt is meeting goal, continue with same goal Pt current nutrition is Low fat diet, ensure compact BID, Plus PPN running at 80ml/hr to provide 1153kcals, 82g protein. Nutrition recommendation: Recommend to d/c PPN as pt is eating sufficiently Last recorded weight is 94.3 kg. Bowel Motility: +BM 02/26 Labs Reviewed: HCT:30.4, Alb:3.4, NA:134, BUN:22, Phos:5.2 Meds Noted: zofran, miralax, colace Skin: WNL Additional Notes: Pt diet advanced to low fat, pt reports tolerating it will, good intake, 75--100% of meals. Recommend to d/c PPN as po intake is sufficient. Monitor diet order, intake, tolerance, wt, labs. Follow up every Saturday / Saturday
--- NOTE | 2023-02-26 12:35 | PM.PNGS ---
Progress Note: A&P Assessment and Plan (1) Metastatic primary lung cancer: Code(s): C34.90 - Malignant neoplasm of unspecified part of unspecified bronchus or lung Status: Acute Assessment and Plan: pt wants to hold off on chemo at this point, will sign off, if pt decides to change his mind he will f/u as outpt for possible port placement Subjective Subjective Date/Time Seen: 02/26/23 12:35 Interval history: feels better, long d/w pt re: port placement for chemotherapy and he would like to hold off on chemo and access at this time Review of Systems Review of Systems: All systems reviewed & are unremarkable except as noted in HPI and below Exam Const: General: cooperative, comfortable, no acute distress and ill appearing Resp: Auscultation: clear to auscultation bilaterally Cardio: Rate: regular rate Rhythm: regular rhythm GI: Inspection: normal to inspection Objective Data Vital Signs Vital Signs: Vital Signs - 24 hr 02/25/23 14:00 02/25/23 21:39 02/25/23 21:41 Temperature 36.5 C 36.5 C Pulse Rate 83 94 94 Respiratory Rate 16 22 H Blood Pressure 146/88 H 150/86 H Pulse Oximetry 99 96 02/26/23 05:44 02/26/23 08:39 Temperature 36.6 C Pulse Rate 90 88 Respiratory Rate 20 Blood Pressure 122/88 Pulse Oximetry 98 Intake/Output Intake/Output: Intake & Output 02/23/23 02/24/23 02/25/23 02/26/23 23:59 23:59 23:59 23:59 Intake Total 6670 5120 3820 2540 Balance 6670 5120 3820 2540 Meds/Results Medications: Active Medications Generic Name Dose Route Start Last Admin Trade Name Freq PRN Reason Stop Dose Admin Acetaminophen 650 mg 02/18/23 17:05 02/24/23 09:03 Acetaminophen 325 Mg Tablet PO 650 mg Q6H PRN Administration Mild Pain (1-3) or Fever Acetaminophen 500 mg 02/23/23 14:00 02/26/23 08:39 Acetaminophen 500 Mg Tablet PO 500 mg Q6H JADA Administration Albuterol 2.5 mg 02/20/23 11:23 Albuterol Sulfate Neb 2.5 Mg/3 Ml Inh INHALATION Q4HRT PRN Shortness Of Breath Lipase/Protease/Amylase 2 cap 02/23/23 12:00 02/25/23 17:05 Lipase/Amylase/Protease 12,000 Units Cap PO 2 cap TIDWM [facility] Administration Bisacodyl 10 mg 02/25/23 09:00 02/25/23 10:32 Bisacodyl 10 Mg Suppository RECTAL Not Given QAM [facility] Carvedilol 25 mg 02/20/23 09:00 02/26/23 08:39 Carvedilol 25 Mg Tablet PO 25 mg Q12HR [facility] Administration Cyclobenzaprine HCl 5 mg 02/22/23 12:49 02/25/23 21:42 Cyclobenzaprine Hcl 5 Mg Tablet PO 5 mg Q8H PRN Administration Muscle Spasm Ezetimibe 10 mg 02/20/23 09:00 02/26/23 08:41 Ezetimibe 10 Mg Tablet PO 10 mg QAM [facility] Administration Guaifenesin 1,200 mg 02/20/23 12:00 02/26/23 08:39 Guaifenesin 12 Hr 600 Mg Tabcr PO 1,200 mg Q12HR [facility] Administration Hydralazine HCl 10 mg 02/19/23 15:22 02/19/23 17:30 Hydralazine Hcl 20 Mg/Ml Vial IV PUSH 10 mg Q8H PRN Administration Blood Pressure - High Hydromorphone HCl 1 mg 02/22/23 09:44 02/26/23 06:58 Hydromorphone Hcl Inj (*Crx) 1 Mg/Ml Syr IV PUSH 1 mg Q3H PRN Administration Breakthrough Pain Lidocaine 2 patch 02/21/23 13:20 02/26/23 08:45 Lidocaine 5% Patch TRANSDERM Not Given DAILY [facility] Lisinopril 20 mg 02/20/23 09:00 02/26/23 08:39 Lisinopril 20 Mg Tablet PO 20 mg DAILY [facility] Administration Ondansetron HCl 4 mg 02/18/23 13:36 Ondansetron Inj 4 Mg/2 Ml Vial IV PUSH Q4H PRN Nausea Oxycodone HCl 10 mg 02/23/23 13:36 Oxycodone Hcl (*Crx) 5 Mg Tab Ir PO Q4H PRN Pain Rated 4-6 Oxycodone HCl 15 mg 02/23/23 13:36 02/26/23 08:38 Oxycodone Hcl (*Crx) 5 Mg Tab Ir PO 15 mg Q4H PRN Administration Pain Rated 7-10 Polyethylene Glycol 17 gm 02/20/23 08:39 02/22/23 08:40 Polyethylene Glycol 3350 17 Gm Powd.Pack PO 17 gm QAM PRN Administration Constipation Senna/Docusate Sodium 1 tab 02/20/23 21:00 1
[2023-02-26] MEDS: LIPASE/AMYLASE/PROTEASE 12,000 UNITS CAP 2 CAP PO ×2 (12:45→16:48)
--- NOTE | 2023-02-26 13:11 | WPDGIPROGNO ---
Progress Note: A&P Assessment and Plan (1) Abdominal pain: Code(s): R10.9 - Unspecified abdominal pain Status: Acute Assessment and Plan: abdominal pain appears to be on the basis of metastatic tumor to the abdominal area. As well as constipation. Plan to keep on stool softeners and laxatives as he will require pain control. (2) Constipation: Code(s): K59.00 - Constipation, unspecified Status: Acute Assessment and Plan: Regular use of MiraLax advised to avoid constipation. Particularly as he uses narcotics. (3) Metastatic primary lung cancer: Code(s): C34.90 - Malignant neoplasm of unspecified part of unspecified bronchus or lung Status: Acute Assessment and Plan: Patient with metastatic lung cancer. Code status being determined by patient. (4) Acute pancreatitis: Code(s): K85.90 - Acute pancreatitis without necrosis or infection, unspecified Status: Acute Assessment and Plan: Elevated lipase and liver tests appear to be on the basis of metastatic lung cancer. Supportive care for now. I understand hospice was being considered. Subjective Date/time seen: 02/26/23 13:11 Interval history: Patient alert today. He appears to have better pain control today. Had a very large bowel movement after laxatives yesterday. He states this helped his pain to a significant degree. Review of Systems Review of Systems: Review of systems noncontributory. Exam Narrative: Physical exam patient is alert. Sitting up in bed. Eating regular diet. Vital signs stable. Lungs are clear. Heart without murmur. Abdomen is much softer. Mild diffuse tenderness described. No masses Objective Data Vital Signs Vital Signs: Vital Signs - 24 hr 02/25/23 14:00 02/25/23 21:39 02/25/23 21:41 Temperature 97.7 F 97.7 F Pulse Rate 83 94 94 Respiratory Rate 16 22 H Blood Pressure 146/88 H 150/86 H Pulse Oximetry 99 96 02/26/23 05:44 02/26/23 08:39 Temperature 97.8 F Pulse Rate 90 88 Respiratory Rate 20 Blood Pressure 122/88 Pulse Oximetry 98 Intake/Output Intake/Output: Intake & Output 02/23/23 02/24/23 02/25/23 02/26/23 23:59 23:59 23:59 23:59 Intake Total 6670 5120 3820 2540 Balance 6670 5120 3820 2540 Meds/Results Medications: Active Medications Generic Name Dose Route Start Last Admin Trade Name Freq PRN Reason Stop Dose Admin Acetaminophen 650 mg 02/18/23 17:05 02/24/23 09:03 Acetaminophen 325 Mg Tablet PO 650 mg Q6H PRN Administration Mild Pain (1-3) or Fever Acetaminophen 500 mg 02/23/23 14:00 02/26/23 08:39 Acetaminophen 500 Mg Tablet PO 500 mg Q6H JADA Administration Albuterol 2.5 mg 02/20/23 11:23 Albuterol Sulfate Neb 2.5 Mg/3 Ml Inh INHALATION Q4HRT PRN Shortness Of Breath Lipase/Protease/Amylase 2 cap 02/23/23 12:00 02/26/23 12:45 Lipase/Amylase/Protease 12,000 Units Cap PO 2 cap TIDWM JADA Administration Bisacodyl 10 mg 02/25/23 09:00 02/25/23 10:32 Bisacodyl 10 Mg Suppository [facility] [facility] [place] 25 mg 02/20/23 09:00 02/26/23 08:39 Carvedilol 25 Mg Tablet PO 25 mg Q12HR ON LICENSE OF [facility] Administration Cyclobenzaprine HCl 5 mg 02/22/23 12:49 02/25/23 21:42 Cyclobenzaprine Hcl 5 Mg Tablet PO 5 mg Q8H PRN Administration Muscle Spasm Ezetimibe 10 mg 02/20/23 09:00 02/26/23 08:41 Ezetimibe 10 Mg Tablet PO 10 mg QAM ON LICENSE OF [facility] Administration Guaifenesin 1,200 mg 02/20/23 12:00 02/26/23 08:39 Guaifenesin 12 Hr 600 Mg Tabcr PO 1,200 mg Q12HR JADA Administration Hydralazine HCl 10 mg 02/19/23 15:22 02/19/23 17:30 Hydralazine Hcl 20 Mg/Ml Vial IV PUSH 10 mg Q8H PRN Administration Blood Pressure - High Hydromorphone HCl 1 mg 02/22/23 09:44 02/26/23 06:58 Hydromorphone Hcl Inj (*Crx) 1 Mg/Ml Syr IV PUSH 1 mg Q3H PRN Administration Breakthrough Pain Lidocai
[2023-02-26 13:45] VITALS: BP 123/77; PULSE 87; RESP 18; TEMP 35.7; O2SAT 98
--- NOTE | 2023-02-26 16:43 | PM.IMPN ---
Progress Note: A&P Assessment and Plan (1) Acute pancreatitis: Code(s): K85.90 - Acute pancreatitis without necrosis or infection, unspecified Status: Acute Assessment and Plan: CT scan showed fat stranding was noted around the tail the pancreas consistent with acute interstitial pancreatitis IVF @ 150 ml per hour Clear liquid diet pain control with PRN norco monitor labs, lipase down from admission to 1557 02/20:Lipase today is 1182. S/p liver biopsy with IR. Still having pain and appears uncomfortable. Increased [place] 5-10 mg prn q4 hours with 4 mg of morphine for breakthrough pain. Continue with IVF. NPO expect sips with meds. 02/21: States that this current regimen of pain medication is helping with his pain however, he does not feel that the pain is getting any better. He feels similar to when he first came in. Lipase is also slightly elevated from yesterday. Will order MRCP today. May need GI input. 02/22: Pain is still uncontrolled. Lipase remains elevated. MRCP was negative for obstructive cause of pain. Does show lesions in the Pancrease. Changing his PO meds from norco to oxy with increased Dilaudid for breakthrough. He has not had any food in 5 + days. Will start with PPN today. 02/23: Persistent pancreatitis with difficulty achieving pain control. Lipase continues to increase. I have asked GI to come on board for further recommendations. I mean were just wants to his pain medication increasing his Oxy to 10-15 mg Q 4 p.r.n., scheduled Tylenol, and scheduled Toradol. He also has Lidoderm patches. GI is recommending adding pancreatic enzymes. 02/24: Continues with high pain levels. Hoping increasing bowel regimen will produce BM and provide some relief. Advancing his diet to low fat to see if his pain remains unchanged with eating. 02/25: Unchanged, still elevated pain levels, was able to have BM which was liquid. Patient remains on PPN. Liver enzymes rising slightly. 02/26: Pain is improved after having a large bowel movement. Stop PPN and IV fluids. Tolerating diet. Seeking discharge home soon. Patient is having an informational session meeting with hospice this afternoon. (2) Liver masses: Code(s): R16.0 - Hepatomegaly, not elsewhere classified Status: Acute Assessment and Plan: CT scan showed multiple findings including greater than 40 masses in the liver measuring up to 3.2 cm, chest and abdominal lymphadenopathy, and widespread bone lesions consistent with metastatic disease. US liver biopsy done today, pathology pending oncology consulted 02/20: Oncology is suspecting primary source of cancer from Pancrease vs lung. Awaiting biopsy results. I made him aware that he does not need to remain inpatient until biopsy results. 02/22: Liver biopsy shows primary small cell carcinoma of the lung and imaging has confirmed mets to bone, liver, Pancrease, and abdominal lymphadenopathy. Will need oncology follow up at outpatient for developing plan of care. Asking Dr Talavera to call and speak with the family today as they have questions. 02/23: General surgery has been consulted for placement of Mediport for outpatient chemotherapy. Per General surgery's note patient has requested medical port placement sign outpatient. Patient may benefit from hospice consult. Will discuss with him and his today. 02/26: Patient is having a meeting with hospice for informational session today, he states he will not undergo chemo. (3) Bone lesion: Code(s): M89.9 - Disorder of bone, unspecified Status: Acute Assessment and Plan: CT scan showed multiple findings including greater than 40 masses in the liver measuring up to 3.2 cm, chest and abdominal lymphadenopathy, and widespread bone lesions consistent with metastatic disease. oncology consulted 02/20: No musculoskeletal complaints at this time. 02/21: Chronic back pain. Remington is helping with this. Can add Lidod
--- NOTE | 2023-02-26 19:39 | PC.NURSE ---
Pt wavering frequently throughout day of whether or not to go hospice or seek full care. Advised pt to listen to hospice company for any future needs. Pt and discussing frequently back and forth. Concerns over whether all cares will be covered by insurance, POA/living will/will, pain control. Pt and requesting a doctor to speak with both of them at the same time. Pt states he would like to go hospice and choose to be comfortable for how many ever days left. Passed report on to night RN and charge manager.
[2023-02-26 21:21] VITALS: PULSE 87
[2023-02-26] MEDS: CYCLOBENZAPRINE HCL 5 MG TABLET PO (21:21)
[2023-02-26] MEDS: SENNA/DOCUSATE SODIUM TABLET 1 TAB PO (21:21)
[2023-02-26 22:00] VITALS: BP 127/75; PULSE 86; RESP 14; TEMP 36.4; O2SAT 97
[2023-02-27] MEDS: oxyCODONE HCL (*CRX) 5 MG TAB IR 15 MG PO ×3 (01:32→10:10)
[2023-02-27] MEDS: ACETAMINOPHEN 500 MG TABLET PO ×3 (01:32→12:37)
[2023-02-27 06:00] VITALS: BP 126/84; PULSE 84; RESP 14; TEMP 35.9; O2SAT 97
[2023-02-27] MEDS: CYCLOBENZAPRINE HCL 5 MG TABLET PO (06:04)
[2023-02-27 06:12] LABS: Basophils Absolute Auto 0.1 K/mm3 (0.0-0.1); Basophils Percent Auto 1.2 % (0.2-1.2); Eosinophils Percent Auto 0.5 % (0-4.4); Hematocrit 29.1 % (42.0-52.0); Hemoglobin 9.7 g/dL (14.0-18.0); Immature Granulocyte Absolute 0.84 K/mm3 (0.00-0.031); Immature Granulocyte Percent A 14.4 % (0-0.5); Immature Platelet Fraction Pct 5.9 % (0.9-11.2); Lymphocytes Absolute Auto 1.55 K/mm3 (0.9-3.2); Lymphocytes Percent Auto 26.5 % (18.3-44.2); Mean Corpuscular HGB Conc 33.3 g/dl (32-36); Mean Corpuscular Hemoglobin 30.4 pg (26-34); Mean Corpuscular Volume 91.2 fl (80-100); Mean Platelet Volume 10.5 fl (7.4-10.4); Monocytes Absolute Auto 0.9 K/mm3 (0.1-0.6); Monocytes Percent Auto 14.9 % (2.6-8.5); Neutrophils Absolute Auto 2.5 K/mm3 (1.3-6.7); Neutrophils Percent Auto 42.5 % (45.5-73.1); Nucleated Red Blood Cells Absolute Auto 0.1 K/mm3 (0.0-0.012); Nucleated Red Blood Cells Perc 1.5 % (0.0-0.2); Platelet Count Result 64 k/mm3 (150-375); Red Blood Count 3.19 M/mm3 (4.6-6.20); Red Cell Distribution Width 13.2 % (11.5-14.5); White Blood Count 5.8 K/mm3 (4.5-10.0)
[2023-02-27 06:20] LABS: Alanine Aminotransferase 145 U/L (6-50); Albumin Level 3.1 g/dL (3.5-5.1); Alkaline Phosphatase 1352 U/L (38-126); Anion Gap 7 mmol/L (8-16); Aspartate Amino Transferase 255 U/L (17-59); Bilirubin,Total 0.8 mg/dL (0.2-1.3); Blood Urea Nitrogen 19 mg/dL (9-20); Calcium 10.2 mg/dL (8.4-10.2); Carbon Dioxide 32 mmol/L (22-30); Chloride 97 mmol/L (98-107); Estimated CRCL calculation 99 ml/min; Estimated Glomerular Filt Rate > 60; Glucose 90 mg/dL (65-110); Phosphorus 5.2 mg/dL (2.5-4.5); Potassium 4.3 mmol/L (3.4-5.0); Sodium 136 mmol/L (137-145)
[2023-02-27] MEDS: LIDOCAINE 5% PATCH 2 PATCH TRANSDERM (09:00)
[2023-02-27 09:01] VITALS: PULSE 80
[2023-02-27] MEDS: EZETIMIBE 10 MG TABLET PO (09:01)
[2023-02-27] MEDS: lisinopriL 20 MG TABLET PO (09:01)
[2023-02-27] MEDS: guaiFENesin 12 HR 600 MG TABCR 1200 MG PO (09:01)
[2023-02-27] MEDS: LIPASE/AMYLASE/PROTEASE 12,000 UNITS CAP 2 CAP PO ×2 (09:01→12:37)
[2023-02-27] MEDS: carvediloL 25 MG TABLET PO (09:01)
[2023-02-27] MEDS: BISACODYL 10 MG SUPPOSITORY RECTAL (09:02)
[2023-02-27 12:05] LABS: Triglycerides 208 mg/dL (<150)
--- NOTE | 2023-02-27 12:13 | PM.DS ---
DS: Admitting Diagnosis Discharge Date 02/27/2023 Admitting Diagnosis Acute pancreatitis, liver masses, lymphadenopathy, bone lesion, hypercalcemia, elevated LFTs, thrombocytopenia, hypertension, coronary artery disease, dyslipidemia DS: Discharge Diagnosis Discharge Diagnosis (1) Acute pancreatitis: Code(s): K85.90 - Acute pancreatitis without necrosis or infection, unspecified Status: Acute (2) Liver masses: Code(s): R16.0 - Hepatomegaly, not elsewhere classified Status: Acute (3) Bone lesion: Code(s): M89.9 - Disorder of bone, unspecified Status: Acute (4) Elevated LFTs: Code(s): R79.89 - Other specified abnormal findings of blood chemistry Status: Acute (5) Thrombocytopenia: Code(s): D69.6 - Thrombocytopenia, unspecified Status: Acute (6) Hypertension: Code(s): I10 - Essential (primary) hypertension Status: Chronic (7) Coronary artery disease: Code(s): I25.10 - Atherosclerotic heart disease of rin[place] coronary artery without angina pectoris Status: Chronic (8) Pneumonia: Code(s): J18.9 - Pneumonia, unspecified organism Status: Acute (9) Metastatic primary lung cancer: Code(s): C34.90 - Malignant neoplasm of unspecified part of unspecified bronchus or lung Status: Acute (10) Hypercalcemia: Code(s): E83.52 - Hypercalcemia Status: Acute (11) Dyslipidemia: Code(s): E78.5 - Hyperlipidemia, unspecified Status: Acute (12) Lymphadenopathy: Code(s): R59.1 - Generalized enlarged lymph nodes Status: Acute (13) Abdominal pain: Code(s): R10.9 - Unspecified abdominal pain Status: Acute (14) Constipation: Code(s): K59.00 - Constipation, unspecified Status: Acute DS: Summary Hospital Course Hospital Course: HPI obtained from the chart, Patient is a 57 YO male smoker with PMH of coronary artery disease with history of stents, ischemic cardiomyopathy with improved EF, hypertension, dyslipidemia, abdominal aortic aneurysm measuring around 4 cm on imaging 2 years ago, and chronic low back pain admitted from ER for evaluation of abdominal pain.? He reports a gradual onset of pressure-like discomfort throughout the upper abdomen which radiates into the back on occasion. This has been going on for over a week. The pain can be intense and at its worse he rates it 8/10. It is worse with deep inspiration. He feels bloating and has been belching and passing gas although that does not seem to help with his symptoms. He thinks he is constipated and reports not having a good bowel movement for over 1 week which is very unusual for him. With further questioning he also endorses a poor appetite, 15 lb unintentional weight loss in the last 1 month, chest congestion with nonproductive cough, chills, sweats, subjective fever, right rib pain, and right scapula pain. He denies chest pain, shortness of breath, vomiting, urinary retention, focal weakness, headache, sore throat, sick contacts, and recent travel. 02/19: He is being treated for acute pancreatitis with IVF, pain control. Lipase has improved to 1557 from admission, will continue to monitor. US liver biopsy done today, can advance to clear liquids for dinner and see how he does. Pathology sent and oncology consulted. Will continue Rocephin and azithromycin for pneumonia coverage. He is in no acute stress this morning, but does not feel well overall. 02/20:? Mr. Grace appears uncomfortable today.? He is sitting up in the chair.? He says he is not able to tolerate his clear liquid diet this morning as he is having too much pain.? He denies nausea.? He states that the Tanner is helping and then he uses the morphine for breakthrough.? Will increase Tanner for 1-2 pills every 4 hours as needed.? He also reports a productive cough with some shortness of breath.? He is unsure of the color of his sputum.? He also reports hot flashes.
[2023-02-27 14:00] VITALS: BP 131/83; PULSE 87; RESP 16; TEMP 35.8; O2SAT 98
== END 2023-02-27 16:45 | disposition hospice, home (50) | DRG 374 ==
LOC: ANHED 11:28 → ANH3MEDSUR 14:41
PROVIDERS: Emergency Medicine; Internal Medicine Hematology & Oncology; Nurse Practitioner; Nurse Practitioner Acute Care; Physician Assistant; Admitting Provider Internal Medicine; Emergency Provider Physician Assistant; PCP Family Medicine; Visit Provider Nurse Practitioner
DX: C78.89 Secondary malignant neoplasm of other digestive organs (principal); J18.9 Pneumonia, unspecified organism; K85.90 Acute pancreatitis without necrosis or infection, unspecified; C34.91 Malignant neoplasm of unspecified part of right bronchus or lung; C77.2 Secondary and unspecified malignant neoplasm of intra-abdominal lymph nodes; C79.51 Secondary malignant neoplasm of bone; C78.7 Secondary malignant neoplasm of liver and intrahepatic bile duct; I25.10 Atherosclerotic heart disease of native coronary artery without angina pectoris; I71.40 Abdominal aortic aneurysm, without rupture, unspecified; I10 Essential (primary) hypertension; I25.5 Ischemic cardiomyopathy; D69.6 Thrombocytopenia, unspecified; E78.5 Hyperlipidemia, unspecified; G89.29 Other chronic pain; M54.50 Low back pain, unspecified; F17.210 Nicotine dependence, cigarettes, uncomplicated; I25.2 Old myocardial infarction; Z95.5 Presence of coronary angioplasty implant and graft; Z98.1 Arthrodesis status; Z51.5 Encounter for palliative care
CPT/HCPCS: 36415; 36430; 47000; 71275; 74018; 74019; 74174; 74183; 76376; 76942; 80048; 80053; 80076; 81001; 82150; 82948; 83615; 83690; 83735; 84100; 84132; 84466; 84478; 84484; 85025; 85027; 85055; 85610; 85730; 86301; 86900; 86901; 87040; 88307; 88342; 93005; 94667; 96361; 96374; 96375; 99285; A9270; A9577; G0378; J0360; J0456; J0696; J1170; J1885; J2270; J2405; J3480; J7030; J7040; J7042; P9034; Q9967